=== PATIENT | female | born 1990 | race Caucasian/White ===

== ENCOUNTER 2016-10-07 20:19 | Emergency (ER) | payer BC ==
--- NOTE | 2016-10-07 20:35 | ED ---
Upper Extremity HPI - General Source: patient, family, RN notes reviewed Mode of arrival: ambulatory Limitations: no limitations - History of Present Illness MD Complaint: Injury to:: right, wrist, hand Onset/Timin -: hour(s) <Iban Dave - Last Filed: 10/07/16 23:05> <Criselda Cruz - Last Filed: 10/08/16 04:31> - General Chief Complaint: Extremity Injury, Upper Stated Complaint: Hand Injury Time Seen by Provider: 10/07/16 20:26 - History of Present Illness Initial Comments: This is a [id number] 25-year-old female who presents emergency department after injuring her right hand and wrist when she was punching things at home out of anger. Patient states that she was angry and Punching objects such as mirrors and aviles. Patient complaining of aching pain to her right hand which is exacerbated by movement. Patient denies any other injuries. Patient denies any paresthesias. Patient has no significant past medical history. Patient states she does take Zoloft on a daily basis. Patient has a job and frequently uses her right hand. 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 Apparently the patient's father voiced to the triage nurse that he would like the patient evaluated by mental health. I did speak to the patient about this. Patient states she does have anger issues. Patient has also had problems with alcohol abuse. Patient denies suicidality or homicidality. (Iban Dave) - Related Data Home Medications Medication Instructions Recorded Confirmed Sertraline [Zoloft] 50 mg PO DAILY 10/07/16 10/07/16 hydrOXYzine HCL [Atarax] 25 mg PO TID PRN 10/07/16 10/07/16 Allergies Allergy/AdvReac Type Severity Reaction Status Date / Time No Known Allergies Allergy Verified 10/07/16 21:19 Review of Systems ROS Other: All systems not noted in ROS Statement are negative. <Iban Dave - Last Filed: 10/07/16 23:05> ROS Other: All systems not noted in ROS Statement are negative. <Criselda Cruz - Last Filed: 10/08/16 04:31> ROS Statement: Those systems with pertinent positive or pertinent negative responses have been documented in the HPI. Past Medical History Past Medical History: No Reported History Past Surgical History: No Surgical Hx Reported Past Psychological History: Depression Smoking Status: Current every day smoker Past Alcohol Use History: Occasional Past Drug Use History: Marijuana <TenzinIban - Last Filed: 10/07/16 23:05> General Exam Limitations: no limitations General appearance: alert, in no apparent distress Head exam: Present: atraumatic, normocephalic, normal inspection Eye exam: Present: normal appearance, EOMI. Absent: scleral icterus, conjunctival injection ENT exam: Present: normal exam Neck exam: Present: normal inspection Respiratory exam: Present: normal lung sounds bilaterally. Absent: respiratory distress, wheezes, rales, rhonchi, stridor Cardiovascular Exam: Present: regular rate, normal rhythm, normal heart sounds. Absent: systolic murmur, diastolic murmur, rubs, gallop, clicks Right Upper Arm exam: Present: normal inspection. Absent: tenderness Elbow exam: Present: normal inspection, full ROM. Absent: tenderness Forearm Wrist exam: Present: normal inspection. Absent: tenderness Hand Wrist exam: Present: full ROM, tenderness (Patient has mild tenderness over the right fourth and fifth metacarpophalangeal joint areas. Minimal tenderness proximally. There is no snuffbox tenderness.). Absent: swelling, abrasion, laceration, ecchymosis, deformity, crepitus, dislocation, erythema, amputation, nail avulsion, subungual hematoma Neuro motor exam: Present: wrist extension intact, thumb opposition intact, thumb IP flexion intact, thumb adduction intact, fingers 2-5 abduction intact Vascular: Present: normal capillary refill, radial pulse (2+). Absent: vascular compromise, Pallo, pulse deficit radial art Back exam: Present: normal inspection Neurological exam: Present: alert, oriented X3, CN II-XII intact, normal gait. Absent: motor sensory deficit Psychiatric exam: Present: normal affect, normal mood, other (No suicidal or homicidal ideation). Absent: depressed, agitated, anxious, flat affect, manic, homicidal ideation, suicidal ideation Skin exam: Present: warm, dry, normal color <Iban Dave - Last Filed: 10/07/16 23:05> <Criselda Cruz - Last Filed: 10/08/16 04:31> - General Exam Comments Initial Comments: Well-developed, well-nourished 25-year-old female in no distress (Iban Dave) Course <Iban Dave - Last Filed: 10/07/16 23:05> <Criselda Cruz - Last Filed: 10/08/16 04:31> Vital Signs 10/07/16 10/08/16 20:21 03:22 Temperature 97.1 F L 98.3 F Pulse Rate 78 77 Respiratory 18 18 Rate Blood Pressure 129/67 118/69 O2 Sat by Pulse 97 99 Oximetry - Reevaluation(s) Reevaluation #1: 10/07/16 22:03 Patient unchanged 10/07/16 22:03 Patient resting calmly in the room. No distress (Iban Dave) Medical Decision Making - Radiology Data Radiology results: report reviewed, image reviewed <Iban Dave - Last Filed: 10/07/16 23:05> <Criselda Cruz - Last Filed: 10/08/16 04:31> - Medical Decision Making Patient was cleared medically for psychiatric evaluation Patient will be turned over to Criselda Cruz for further evaluation and disposition. Patient resting comfortably in the room at this time. (Iban Dave ) Patient was evaluated by emergency psych services. They states that patient is not suicidal and does not need to be admitted at this time. Patient will be discharged with outpatient information. Patient presents the treatment plan will comply. Return parameters were discussed. (Criselda Cruz) - Lab Data Lab Results 10/07/16 10/07/16 Range/Units 20:44 20:44 Urine HCG, Qual Not Detected (Not Detectd) Urine Opiates Screen Not Detected (NotDetected) Ur Oxycodone Screen Not Detected (NotDetected) Urine Methadone Screen Not Detected (NotDetected) Ur Propoxyphene Screen Not Detected (NotDetected) Ur Barbiturates Screen Not Detected (NotDetected) U Tricyclic Antidepress Not Detected (NotDetected) Ur Phencyclidine Scrn Not Detected (NotDetected) Ur Amphetamines Screen Not Detected (NotDetected) U Methamphetamines Scrn Not Detected (NotDetected) U Benzodiazepines Scrn Detected H (NotDetected) Urine Cocaine Screen Not Detected (NotDetected) U Marijuana (THC) Screen Detected H (NotDetected) - Radiology Data No evidence of acute pathology (Iban Dave) Disposition <Iban Dave - Last Filed: 10/07/16 23:05> Time of Disposition: 03:09 <Keira Cruzily - Last Filed: 10/08/16 04:31> Clinical Impression: Contusion of right hand, initial encounter, Alcohol intoxication, Alcohol abuse , Anger reaction Disposition: HOME SELF-CARE Condition: Good Instructions: Suicide Prevention for Adults (ED) Additional Instructions: Patient advised to follow-up with outpatient psychiatric services. Return to the emergency department if any alarming signs or symptoms occur including suicidal thoughts. Referrals: Aroldo Noel DO [Primary Care Provider] - 1-2 days
--- NOTE | 2016-10-07 20:49 | XR ---
EXAMINATION TYPE: XR wrist complete RT DATE OF EXAM: 10/07/2016 8:37 PM COMPARISON: NONE HISTORY: Pain and injury TECHNIQUE: 4 views FINDINGS: I see no fracture nor dislocation. Joint spaces are normal. Soft tissues appear normal. IMPRESSION: Normal right wrist.
--- NOTE | 2016-10-07 20:49 | XR ---
History pain. Comparison none. Technique 3 views. FINDINGS: I see no fracture nor dislocation. Metacarpals are intact. There are no erosions. Joint spaces are no rmal. CONCLUSION: Negative right hand exam.
[2016-10-07 21:05] VITALS: RESP 18
[2016-10-07] MEDS ORDERED: ACETAMINOPHEN TAB 500 MG TAB PO STA (22:18)
[2016-10-07] MEDS ORDERED: NICOTINE 14MG/24HR PATCH TRANSDERM STA (22:19)
[2016-10-08] MEDS ORDERED: IBUPROFEN 600 MG TAB PO STA (00:52)
[2016-10-08 03:43] VITALS: BP 118/69; PULSE 77; TEMP 98.3
== END 2016-10-08 03:42 | disposition home or self-care (01) ==
LOC: EC 20:19
DX: S60.211A Contusion of right wrist, initial encounter (principal); F10.129 Alcohol abuse with intoxication, unspecified; R45.4 Irritability and anger; F32.9 Major depressive disorder, single episode, unspecified; F17.200 Nicotine dependence, unspecified, uncomplicated; Z79.899 Other long term (current) drug therapy; W22.8XXA Striking against or struck by other objects, initial encounter
CPT/HCPCS: 82075; 81025; 80306; 73110; 73130; 99284; S4990

== ENCOUNTER 2017-01-31 21:27 | Emergency (ER) | payer BC, OTHER ==
[2017-01-31] MEDS ORDERED: SODIUM CHLORIDE 0.9% 1,000 ML IV ONE (21:35)
--- NOTE | 2017-01-31 21:45 | ED ---
Abdominal Pain HPI - General Chief Complaint: Abdominal Pain Stated Complaint: 15 wks preg. Cramping Time Seen by Provider: 01/31/17 21:34 Source: patient Mode of arrival: ambulatory Limitations: no limitations - History of Present Illness Complaint: abdominal pain Onset/Timin -: hour(s) Location: LLQ Radiation: none Migration to: no migration Severity: moderate Quality: cramping Consistency: constant Improves With: nothing Worsens With: nothing Associated Symptoms: denies other symptoms - Related Data LMP (females 10-50): 2 months Home Medications Medication Instructions Recorded Confirmed No Known Home Medications [No 01/31/17 01/31/17 Known Home Medications] Allergies Allergy/AdvReac Type Severity Reaction Status Date / Time No Known Allergies Allergy Verified 01/31/17 21:44 Review of Systems ROS Statement: Those systems with pertinent positive or pertinent negative responses have been documented in the HPI. ROS Other: All systems not noted in ROS Statement are negative. Constitutional: Denies: fever, chills, weakness Respiratory: Denies: cough, dyspnea Cardiovascular: Denies: chest pain, edema Gastrointestinal: Reports: abdominal pain, nausea. Denies: vomiting, diarrhea, constipation, melena, hematochezia Genitourinary: Denies: dysuria, hematuria, discharge Musculoskeletal: Denies: back pain Skin: Denies: rash Neurological: Denies: headache Past Medical History Past Medical History: No Reported History History of Any Multi-Drug Resistant Organisms: None Reported Past Surgical History: No Surgical Hx Reported Past Psychological History: No Psychological Hx Reported Smoking Status: Former smoker Past Alcohol Use History: None Reported Past Drug Use History: Marijuana General Exam Limitations: no limitations General appearance: alert, in no apparent distress Head exam: Present: atraumatic, normocephalic Eye exam: Present: normal appearance. Absent: scleral icterus, conjunctival injection ENT exam: Present: normal oropharynx, mucous membranes moist Respiratory exam: Present: normal lung sounds bilaterally. Absent: respiratory distress, wheezes, rales, rhonchi, stridor Cardiovascular Exam: Present: regular rate, normal rhythm, normal heart sounds. Absent: systolic murmur, diastolic murmur, rubs, gallop GI/Abdominal exam: Present: soft, normal bowel sounds. Absent: distended, tenderness, guarding, rebound, rigid, mass, pulsatile mass, hernia External exam: Present: normal external exam. Absent: erythema, swelling, lesions, lacerations, ecchymosis Speculum exam: Present: normal speculum exam. Absent: erythema, vaginal discharge, cervical discharge, vaginal bleeding By manual exam: Present: normal by manual exam, uterine enlargement ( Approximately 4-6 weeks size). Absent: cervical motion tenderness, adnexal tenderness, adnexal mass, uterine tenderness Back exam: Present: normal inspection. Absent: CVA tenderness (R), CVA tenderness (L) Neurological exam: Present: alert Skin exam: Present: warm, dry, intact, normal color. Absent: rash Course Vital Signs 01/31/17 02/01/17 21:31 00:00 Temperature 98.2 F Pulse Rate 90 90 Respiratory 20 18 Rate Blood Pressure 144/90 118/70 O2 Sat by Pulse 100 99 Oximetry Medical Decision Making - Lab Data Lab Results 01/31/17 01/31/17 01/31/17 Range/Units 22:08 22:08 22:08 HCG, Quant 22376.5 mIU/mL Urine Color Yellow Urine Appearance Cloudy H (Clear) Urine pH 5.5 (5.0-8.0) Ur Specific [place] 1.022 (1.001-1.035) Urine Protein Negative (Negative) Urine Glucose (UA) Negative (Negative) Urine Ketones Negative (Negative) Urine Blood Small H (Negative) Urine Nitrite Negative (Negative) Urine Bilirubin Negative (Negative) Urine Urobilinogen <2.0 (<2.0) mg/dL Ur Leukocyte Esterase Negative (Negative) Urine RBC 3 (0-5) /hpf Urine WBC 2 (0-5) /hpf Ur Squamous Epith Cells 14 H (0-4) /hpf Urine Bacteria Occasional H (None) /hpf Urine Mucus Rare H (None) /hpf Urine HCG, Qual (Not Detectd) Trichomonas Ag (Rapid) (Negative) Blood Type O Positive Blood Type Recheck No 01/31/17 01/31/17 Range/Units 22:08 22:33 HCG, Quant mIU/mL Urine Color Urine Appearance (Clear) Urine pH (5.0-8.0) Ur Specific [place] (1.001-1.035) Urine Protein (Negative) Urine Glucose (UA) (Negative) Urine Ketones (Negative) Urine Blood (Negative) Urine Nitrite (Negative) Urine Bilirubin (Negative) Urine Urobilinogen (<2.0) mg/dL Ur Leukocyte Esterase (Negative) Urine RBC (0-5) /hpf Urine WBC (0-5) /hpf Ur Squamous Epith Cells (0-4) /hpf Urine Bacteria (None) /hpf Urine Mucus (None) /hpf Urine HCG, Qual Detected (Not Detectd) Trichomonas Ag (Rapid) Negative (Negative) Blood Type Blood Type Recheck Disposition Clinical Impression: Abdominal pain Disposition: HOME SELF-CARE Condition: Good Instructions: Abdominal Pain in (ED) Referrals: Aroldo Noel DO [Primary Care Provider] - 1-2 days Andreas Gr MD [STAFF PHYSICIAN] - 1-2 days
[2017-01-31] MEDS ORDERED: ACETAMINOPHEN TAB 325 MG TAB PO STA (21:47)
[2017-01-31 22:21] LABS: Appearance,Urine Cloudy (Clear); Bacteria,Urine Occasional /hpf; Bilirubin,Urine Negative (Negative); Glucose,Urine (UA) Negative (Negative); Ketones,Urine Negative (Negative); Leukocyte Esterase,Urine Negative (Negative); Mucus,Urine Rare /hpf; Nitrite,Urine Negative (Negative); PH, Urine 5.5 (5.0-8.0); Particle Count 6197; Protein,Urine Negative (Negative); RBC,Urine 3 /hpf (0-5); Specific Gravity,Urine 1.022 (1.001-1.035); Squamous Epithelial Cell,Urine 14 /hpf (0-4); UA Billing (MACRO vs. MICRO) MICRO; Urobilinogen,Urine <2.0 mg/dL (<2.0); WBC,Urine 2 /hpf (0-5)
[2017-02-01 00:40] VITALS: RESP 18
--- NOTE | 2017-02-01 00:43 | US ---
EXAM: US First Trimester, Transabdominal US , Transvaginal CLINICAL HISTORY: 26-year-old female with pelvic pain. LMP of 10/21/2016. GA by LMP 14 weeks 4 days. Beta hCG of 53,717 TECHNIQUE: Real-time transabdominal and transvaginal obstetrical ultrasound of the maternal pelvis and a first trimester with image documentation. Transvaginal imaging was used for better evaluation of the fetus and adnexa. COMPARISON: None. FINDINGS: Gestation: [place]-rump length of 0.46 cm, which corresponds to an ultrasound age of 6 weeks 1 day. Mean sac diameter of 1.35 cm, which corresponds to an ultrasound age of 5 weeks 4 days. Yolk sac measures 0. 3 cm, which is normal. Heart rate of 155 bpm. Placenta/amniotic fluid: Cannot be adequately evaluated due to the early gestational age. Uterus/cervix: The uterus measures 9.6 x 4.7 x 5.5 cm. No myometrial mass. Ovaries: The right ovary measures 2.1 x 1.2 x 2.1 cm. The left ovary measures 1.3 x 1.4 x 1.2 cm. No mass. Free fluid: No significant free fluid. IMPRESSION: Single live intrauterine gestation with an average ultrasound age of 5 weeks 6 days, which does not correspond with the LMP. Serial trending beta hCG values along with short-term interval obstetrical ultrasound recommended for follow-up.
[2017-02-01 01:12] VITALS: BP 113/83; PULSE 73; TEMP 97
== END 2017-02-01 01:12 | disposition home or self-care (01) ==
LOC: EC 21:27
DX: O26.892 Other specified pregnancy related conditions, second trimester (principal); R10.32 Left lower quadrant pain; Z87.891 Personal history of nicotine dependence; Z3A.15 15 weeks gestation of pregnancy
CPT/HCPCS: 36415; 76801; 76817; 81001; 81025; 84702; 86900; 86901; 87070; 87205; 87491; 87591; 87808; 96360; 99284

== ENCOUNTER 2017-02-15 00:32 | Emergency (ER) | payer OTHER ==
[2017-02-15 01:37] LABS: Basophils # (A) 0.1 k/uL (0-0.2); Basophils % (A) 1 %; CH 30.6; CHCM 35.6; Eosinophils # (A) 0.1 k/uL (0-0.7); Eosinophils % (A) 1 %; HCT 34.9 % (34.0-46.0); HDW 2.55; HGB 12.6 gm/dL (11.4-16.0); Luc # (Auto) 0.22; Luc % (Auto) 2; Lymphocytes # (A) 2.2 k/uL (1.0-4.8); Lymphocytes % (A) 22 %; MCH 31.3 pg (25.0-35.0); MCHC 36.2 g/dL (31.0-37.0); MCV 86.4 fL (80.0-100.0); Mean Platelet Volume 7.3; Monocytes # (A) 0.6 k/uL (0-1.0); Monocytes % (A) 6 %; Neutrophils # (A) 6.6 k/uL (1.3-7.7); Neutrophils % (A) 68 %; RBC 4.04 m/uL (3.80-5.40); WBC 9.7 k/uL (3.8-10.6)
[2017-02-15 01:39] LABS: Anion Gap 10 mmol/L; Blood Urea Nitrogen 10 mg/dL (7-17); Calcium 9.7 mg/dL (8.4-10.2); Carbon Dioxide 22 mmol/L (22-30); Chloride 105 mmol/L (98-107); Glucose 88 mg/dL (74-99); Non-African American GFR(MDRD) >60 (>60 ml/min/1.73 sqM); Potassium 3.9 mmol/L (3.5-5.1); Sodium 137 mmol/L (137-145)
--- NOTE | 2017-02-15 01:44 | ED ---
General Adult HPI - General Chief complaint: Vaginal Bleeding Stated complaint: 8wks preg-Bleeding/Cramping Time Seen by Provider: 02/15/17 00:51 Source: patient, RN notes reviewed Mode of arrival: ambulatory Limitations: no limitations - History of Present Illness Initial comments: 26 show female presents emergency Department chief complaint vaginal bleeding . Patient is A0 approximate weeks . 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 Patient states that she has had some spotting last few days but states that she passed 1 clot today. Patient states she has some lower abdominal cramping. Patient denies any fever or chills. She states she does have nausea vomiting. Patient states that she has no dysuria no hematuria. She was recently treated for urinary tract infection. - Related Data Home Medications Medication Instructions Recorded Confirmed No Known Home Medications [No 01/31/17 01/31/17 Known Home Medications] Allergies Allergy/AdvReac Type Severity Reaction Status Date / Time No Known Allergies Allergy Verified 02/15/17 00:35 Review of Systems ROS Statement: Those systems with pertinent positive or pertinent negative responses have been documented in the HPI. ROS Other: All systems not noted in ROS Statement are negative. Past Medical History Past Medical History: No Reported History History of Any Multi-Drug Resistant Organisms: None Reported Past Surgical History: No Surgical Hx Reported Past Psychological History: No Psychological Hx Reported Smoking Status: Former smoker Past Alcohol Use History: None Reported Past Drug Use History: Marijuana General Exam Limitations: no limitations General appearance: alert, in no apparent distress Respiratory exam: Present: normal lung sounds bilaterally. Absent: respiratory distress, wheezes, rales, rhonchi, stridor Cardiovascular Exam: Present: regular rate, normal rhythm, normal heart sounds. Absent: systolic murmur, diastolic murmur, rubs, gallop, clicks GI/Abdominal exam: Present: soft, normal bowel sounds. Absent: distended, tenderness, guarding, rebound, rigid Neurological exam: Present: alert, oriented X3, CN II-XII intact Skin exam: Present: warm, dry, intact, normal color. Absent: rash Course Vital Signs 02/15/17 00:35 Temperature 98.4 F Pulse Rate 115 H Respiratory 18 Rate Blood Pressure 128/84 O2 Sat by Pulse 100 Oximetry Medical Decision Making - Medical Decision Making 26-year-old female presented for vaginal bleeding and . Patient appears to having a miscarriage. Patient's ultrasound does not show viable IUP at this time as there is no heartbeat and the borders are irregular. Patient's hCG level did go up though. Patient has a follow-up appointment with [facility]ER return parameters were discussed. - Lab Data Result diagrams: 02/15/17 01:16 02/15/17 01:16 Lab Results 02/15/17 02/15/17 02/15/17 Range/Units 01:16 01:16 01:16 WBC 9.7 (3.8-10.6) k/uL RBC 4.04 (3.80-5.40) m/uL Hgb 12.6 (11.4-16.0) gm/dL Hct 34.9 (34.0-46.0) % MCV 86.4 (80.0-100.0) fL MCH 31.3 (25.0-35.0) pg MCHC 36.2 (31.0-37.0) g/dL RDW 12.0 (11.5-15.5) % Plt Count 305 (150-450) k/uL Neutrophils % 68 % Lymphocytes % 22 % Monocytes % 6 % Eosinophils % 1 % Basophils % 1 % Neutrophils # 6.6 (1.3-7.7) k/uL Lymphocytes # 2.2 (1.0-4.8) k/uL Monocytes # 0.6 (0-1.0) k/uL Eosinophils # 0.1 (0-0.7) k/uL Basophils # 0.1 (0-0.2) k/uL Sodium 137 (137-145) mmol/L Potassium 3.9 (3.5-5.1) mmol/L Chloride 105 (98-107) mmol/L Carbon Dioxide 22 (22-30) mmol/L Anion Gap 10 mmol/L BUN 10 (7-17) mg/dL Creatinine 0.60 (0.52-1.04) mg/dL Est GFR (MDRD) Af Amer >60 (>60 ml/min/1.73 sqM) Est GFR (MDRD) Non-Af >60 (>60 ml/min/1.73 sqM) Glucose 88 (74-99) mg/dL Calcium 9.7 (8.4-10.2) mg/dL HCG, Quant 19369.5 mIU/mL Blood Type O Positive Blood Type Recheck No Disposition Clinical Impression: Miscarriage Disposition: HOME SELF-CARE Condition: Stable Instructions: Miscarriage (ED) Additional Instructions: Please return to the Emergency Department if symptoms worsen or any other concerns. Referrals: Aroldo Noel DO [Primary Care Provider] - 1-2 days Time of Disposition: 02:32
--- NOTE | 2017-02-15 02:26 | US ---
EXAM: US First Trimester, Transabdominal US , Transvaginal CLINICAL HISTORY: Reason: pain TECHNIQUE: Real-time transabdominal and transvaginal obstetrical ultrasound of the maternal pelvis and a first trimester with image documentation. Transvaginal imaging was used for better evaluation of the fetus and adnexa. COMPARISON: Pelvic ultrasound, 01/31/17 FINDINGS: Gestation: Intrauterine gestational sac with irregular margins. Measurements are not provided. Previously seen pole and yolk sac are no longer identified. Uterus/cervix: Uterus measures 8.9 x 5.4 x 5.5 cm. Ovaries: Ovaries not visualized. No adnexal mass or cyst. Free fluid: No free fluid. IMPRESSION: 1. Intrauterine gestational sac with irregular margins. Previously seen pole and yolk sac are no longer identified. Findings are suspicious for spontaneous . Recommend correlation with beta hCG trend and consider short interval follow-up ultrasound. 2. Ovaries not visualized. No adnexal mass or cyst.
[2017-02-15 02:39] LABS: Amorphous Sediment,Urine Few /hpf; Appearance,Urine Turbid (Clear); Bilirubin,Urine Negative (Negative); Glucose,Urine (UA) Negative (Negative); Ketones,Urine Negative (Negative); Leukocyte Esterase,Urine Negative (Negative); Mucus,Urine Rare /hpf; Nitrite,Urine Negative (Negative); Particle Count 37488; Protein,Urine Negative (Negative); Specific Gravity,Urine 1.013 (1.001-1.035); Squamous Epithelial Cell,Urine 3 /hpf (0-4); UA Billing (MACRO vs. MICRO) MICRO; Urobilinogen,Urine <2.0 mg/dL (<2.0)
[2017-02-15 02:44] VITALS: BP 108/85; PULSE 57; RESP 16; TEMP 98.3
== END 2017-02-15 02:43 | disposition home or self-care (01) ==
LOC: EC 00:32
DX: O03.9 Complete or unspecified spontaneous abortion without complication (principal); O21.9 Vomiting of pregnancy, unspecified; Z87.891 Personal history of nicotine dependence
CPT/HCPCS: 36415; 76801; 76817; 80048; 81001; 84702; 85025; 86900; 86901; 99284

== ENCOUNTER 2018-05-11 03:50 | Inpatient (IN) | payer OTHER ==
[2018-05-11] MEDS ORDERED: METHYLERGONOVINE 0.2 MG/ML 1 ML AMP IM PRN (07:13)
[2018-05-11] MEDS ORDERED: CARBOPROST TROMETHAMINE 250 MCG/ML 1 ML AMP IM PRN (07:13)
[2018-05-11] MEDS ORDERED: LIDOCAINE 0.5% (PF) 5 MG/ML (50 ML SDV) SQ PRN (07:13)
[2018-05-11] MEDS ORDERED: TERBUTALINE 1 MG/ML VIAL SQ PRN (07:13)
[2018-05-11] MEDS ORDERED: OXYTOCIN 10 UNIT/ML 1 ML VIAL IM PRN (07:13)
[2018-05-11] MEDS ORDERED: OXYTOCIN 20 UNITS/1000 ML NS 1,000 ML IV SCH ×2 (07:15→19:15)
[2018-05-11 07:34] VITALS: BMI 30.5
[2018-05-11] MEDS: LACTATED RINGERS 1,000 ML IV SCH ×3 (07:48→12:04)
[2018-05-11 07:52] LABS: Basophils % (A) 0 %; Eosinophils # (A) 0.1 k/uL (0-0.7); Eosinophils % (A) 0 %; HCT 35.7 % (34.0-46.0); HGB 12.1 gm/dL (11.4-16.0); Lymphocytes # (A) 1.8 k/uL (1.0-4.8); Lymphocytes % (A) 7 %; MCH 29.2 pg (25.0-35.0); MCHC 33.8 g/dL (31.0-37.0); MCV 86.5 fL (80.0-100.0); Mean Platelet Volume 7.6; Monocytes # (A) 0.7 k/uL (0-1.0); Monocytes % (A) 3 %; Neutrophils # (A) 21.7 k/uL (1.3-7.7); Neutrophils % (A) 89 %; Platelet Count 309 k/uL (150-450); RBC 4.13 m/uL (3.80-5.40); RDW 14.1 % (11.5-15.5); WBC 24.4 k/uL (3.8-10.6)
[2018-05-11] MEDS ORDERED: ROPIVACAINE 5MG/ML 20ML VIAL ONE (08:27)
[2018-05-11] MEDS ORDERED: fentaNYL (PF) 50 MCG/ML 5 ML AMP ONE (08:27)
[2018-05-11] MEDS ORDERED: SODIUM CHLORIDE 0.9% 100 ML BAG ONE (08:27)
--- NOTE | 2018-05-11 10:26 | P.HPOB ---
History of Present Illness H&P Date: 05/11/18 Chief Complaint: 39-4/7 weeks, labor The patient is a 27-year-old 2 para 0010 admitted at 39-4/7 weeks as established by a 10 week ultrasound. She is admitted in early labor with all signs reassuring. She was seen through triage and made cervical change. On admission, all signs are reassuring. Her has been uncomplicated though she did have some emotional lability in the midtrimester and was started on Zoloft which is significantly relieved the symptoms. Group B strep status is negative. Obstetrical history: 2 para 0010 with the 1 early miscarriage not requiring D&C. Current statistics are listed in history of present illness. EDC of 05/14/2018 was established by a 10 week ultrasound. Laboratory workup done traits of blood type of O+ with a negative antibody screen. Rubella status is immune. Remainder of the laboratory workup was within normal limits. One hour Glucola was normal and group B strep status is negative. Gynecologic history: Unremarkable with no history of any infections to include STDs. Review of Systems Review of systems is confined to history of present illness. Past Medical History Past Medical History: No Reported History History of Any Multi-Drug Resistant Organisms: None Reported Past Surgical History: No Surgical Hx Reported Past Anesthesia/Blood Transfusion Reactions: No Reported Reaction Past Psychological History: Depression Smoking Status: Former smoker Past Alcohol Use History: None Reported Past Drug Use History: Marijuana Additional Drug Use History / Comment(s): daily thc use - Past Family History Mother Family Medical History: No Reported History Medications and Allergies Home Medications Medication Instructions Recorded Confirmed Type Pnv,Calcium 72/Iron/Folic Acid 1 tab PO DAILY 05/11/18 05/11/18 History [ Plus Tablet] Sertraline [Zoloft] 50 mg PO DAILY 05/11/18 05/11/18 History Allergies Allergy/AdvReac Type Severity Reaction Status Date / Time No Known Allergies Allergy Verified 05/11/18 04:04 Exam Vital Signs Temp Pulse Resp BP 05/11/18 06:00 97.3 F L 95 16 124/86 Intake and Output 05/10/18 05/11/18 05/11/18 22:59 06:59 14:59 Other: Weight 80.739 kg 80.739 kg In general, this is a well-developed, well-nourished white female in no acute distress. Her heart has a regular rhythm and rate without murmur. Her lungs are clear to auscultation bilaterally in all christina. Her abdomen is gravid, nondistended, has normal active bowel sounds, is soft, nontender, and without any palpable masses aside from uterine fundus. Her extremities are without any cyanosis, clubbing, or significant edema and are nontender to palpation bilaterally. Digital cervical examination on straights her cervix to be 4-5 cm dilated, approximately 80% effaced, with the vertex in presentation at -2 station. Artificial rupture of membranes is carried out demonstrating light to moderately meconium-stained fluid. Results Result Diagrams: 05/11/18 07:38 Abnormal Lab Results - Last 24 Hours (Table) 05/11/18 Range/Units 07:38 WBC 24.4 H (3.8-10.6) k/uL Neutrophils # 21.7 H (1.3-7.7) k/uL Assessment and Plan (1) Active labor at term Current Visit: Yes Status: Acute Code(s): GSW2387 - SNOMED Code(s): 26323248 Plan: The patient is admitted for active management of labor. An epidural catheter has been placed for analgesia. She has undergone artificial rupture of membranes. As result meconium present, the nurse delivery helper will be in attendance at the delivery. Otherwise, the patient will continue to have close maternal and surveillance and expectant management will be practiced. Should she made no significant progress over the next the of one hour, Pitocin augmentation will be added.
[2018-05-11] MEDS ORDERED: ROPIVACAINE 100 MG, fentaNYL (PF) 200 MCG in SODIUM CHLORIDE 0.9% 76 ML EPIDURAL ONE (11:22)
[2018-05-11] MEDS ORDERED: WITCH HAZEL 1 EACH MED..PAD TOPICAL PRN (19:05)
[2018-05-11] MEDS ORDERED: diphenhydrAMINE 50 MG/ML 1 ML VIAL IVP PRN ×2 (19:05)
[2018-05-11] MEDS ORDERED: LANOLIN CREAM 5 GM TUBE TOPICAL PRN (19:05)
[2018-05-11] MEDS ORDERED: diphenhydrAMINE 25 MG CAP PO PRN (19:05)
[2018-05-11] MEDS ORDERED: ZOLPIDEM 5 MG TAB PO PRN (19:05)
[2018-05-11] MEDS ORDERED: diphenhydrAMINE 50 MG CAP PO PRN (19:05)
[2018-05-11] MEDS ORDERED: BENZOCAINE/MENTHOL SPRAY 1 GM/SPRAY AEROSOL TOPICAL PRN (19:05)
[2018-05-11] MEDS ORDERED: SIMETHICONE 80 MG CHEWABLE PO PRN (19:05)
[2018-05-11] MEDS ORDERED: HYDROCORTISONE 2.5% RECTAL CREAM 30 GM TUBE RECTAL PRN (19:05)
--- NOTE | 2018-05-11 19:08 | P.PROBDLV ---
Vaginal Delivery Note - . Vaginal Delivery Note: This is a very pleasant 27-year-old 2 para 0010 at 39-4/7 weeks that presented to labor and delivery with complaints of contractions. Patient was admitted to labor and delivery amniotomy was performed and thin meconium- stained fluid was noted. Patient progressed through labor eventually requesting an epidural which was placed by anesthesia without difficulty. Patient was started on Pitocin augmentation of labor at some point during labor in addition. Patient progressed to complete, with excellent maternal effort she had a normal spontaneous vaginal delivery of a viable male at 1846, weight of 6 lbs. 10 oz. with Apgars of 8 and 9 at one and 5 minutes respectively. was noted to have a spontaneous cry. After a 2 minute delay the umbilical cord was doubly clamped and cut and the placenta was delivered spontaneously intact with a three-vessel cord being noted. On inspection the patient's vaginal vault bilateral labial lacerations were noted which were repaired in the usual fashion with 4-0 chromic. Hemostasis was appreciated afterwards uterus was noted to be firm and below the umbilicus at this time. Estimated blood loss 300 mL Patient and tolerated delivery well and are resting comfortably.
[2018-05-11] MEDS: IBUPROFEN 600 MG TAB PO PRN (21:14)
[2018-05-11] MEDS: SENNOSIDES-DOCUSATE SODIUM 1 EACH TAB PO SCH (21:14)
[2018-05-12] MEDS: IBUPROFEN 600 MG TAB PO PRN ×3 (03:40→16:56)
[2018-05-12] MEDS: ACETAMINOPHEN TAB 325 MG TAB PO PRN (08:06)
[2018-05-12] MEDS: SENNOSIDES-DOCUSATE SODIUM 1 EACH TAB PO SCH ×2 (08:06→19:36)
--- NOTE | 2018-05-12 10:15 | P.PNOBGVD ---
Subjective - Subjective Principal diagnosis: PPD 1 Interval history: Patient is doing relatively well . On this day number when she is ambulating and voiding without difficulty. She states her pain is relatively well controlled. She is breast-feeding without difficulty. She is tolerating regular diet without nausea or vomiting. Patient reports: Reports voiding normally, Reports pain well controlled, Reports ambulating normally [place]: doing well, nursing well Objective - Latest Vital Signs Latest vital signs: Vital Signs Temp Pulse Resp BP Pulse Ox 05/12/18 08:00 96.7 F L 84 17 120/72 97 05/12/18 04:00 97.8 F 77 16 126/76 05/12/18 00:00 98.6 F 76 16 114/68 05/11/18 21:01 97.1 F L 96 16 117/77 05/11/18 20:31 106 H 16 117/67 05/11/18 20:01 106 H 14 127/63 05/11/18 19:46 98.1 F 98 16 125/65 05/11/18 19:31 94 16 120/76 05/11/18 19:16 98.2 F 102 H 16 126/78 05/11/18 19:01 98.0 F 121 H 16 132/68 Intake and Output 05/11/18 05/12/18 05/12/18 22:59 06:59 14:59 Intake Total 400 Balance 400 Intake: Oral 400 Other: # Voids 1 2 1 - Exam Extremities: Present: normal Abdomen: Present: normal appearance, soft Uterus: Present: normal, firm Assessment and Plan (1) Status post vaginal delivery Current Visit: Yes Status: Acute Code(s): GGD5963 - SNOMED Code(s): 128973411 (2) Active labor at term Current Visit: Yes Status: Acute Code(s): BMB3478 - SNOMED Code(s): 93978942 Plan: We'll continue routine care and anticipate discharge home tomorrow morning.
[2018-05-12] MEDS: HYDROcodone/APAP 5-325MG 1 EACH TAB PO PRN ×3 (11:17→23:15)
[2018-05-12 17:45] VITALS: RESP 16
[2018-05-13] MEDS: IBUPROFEN 600 MG TAB PO PRN (04:11)
[2018-05-13] MEDS: SENNOSIDES-DOCUSATE SODIUM 1 EACH TAB PO SCH (08:19)
[2018-05-13] MEDS: ACETAMINOPHEN TAB 325 MG TAB PO PRN (08:19)
--- NOTE | 2018-05-13 08:23 | P.DS ---
Providers Date of admission: 05/11/18 07:14 Expected date of discharge: 05/13/18 Attending physician: Andreas Gr Primary care physician: Andreas Gr - Discharge Diagnosis(es) (1) Status post vaginal delivery Current Visit: Yes Status: Acute (2) Active labor at term Current Visit: Yes Status: Acute Hospital Course: This is a pleasant 27-year-old 2 para 0010 at 39-4/7 weeks that presented to labor and delivery in active labor on 05/11. Patient progressed through labor eventually becoming complete and had a normal spontaneous vaginal delivery of a viable male infant at 1846, weight of 6 lbs. 10 oz. with Apgars of 8 and 9 at one and 5 minutes or sexually. Patient did sustain bilateral labial lacerations which were repaired in the usual fashion with chromic. Patient has done well . On this day #2 she is noting some depression symptoms but states she has not taken her Zoloft since . She is urged to restart this medication in the period especially. She is ambulating and voiding without difficulty. She is complaining of some "tailbone" pain since the delivery. She is breast-feeding without difficulty. Patient Condition at Discharge: Good Plan - Discharge Summary New Discharge Prescriptions: No Action Sertraline [Zoloft] 50 mg PO DAILY Pnv,Calcium 72/Iron/Folic Acid [ Plus Tablet] 1 tab PO DAILY Discharge Medication List Pnv,Calcium 72/Iron/Folic Acid [ Plus Tablet] 1 tab PO DAILY 05/11/18 [ History] Sertraline [Zoloft] 50 mg PO DAILY 05/11/18 [History] Follow up Appointment(s)/Referral(s): Andreas Gr MD [Primary Care Provider] - 6 Weeks Patient Instructions/Handouts: Vaginal Delivery (DC), Vaginal Delivery (GEN) Discharge Disposition: HOME SELF-CARE
[2018-05-13 08:52] VITALS: BP 130/88; PULSE 91; TEMP 97.8
[2018-05-13] MEDS ORDERED: PRENATAL VIT-IRON-FOLIC ACID 1 EACH CAP PO SCH (09:00)
[2018-05-13] MEDS ORDERED: SERTRALINE 50 MG TAB PO SCH (09:00)
== END 2018-05-13 11:00 | disposition home or self-care (01) | DRG 807 ==
LOC: FBPOP 03:50 → 4FBP 07:14
PROVIDERS: ADMIT Obstetrics & Gynecology; ATTEND Obstetrics & Gynecology
PROC: 10E0XZZ Delivery of Products of Conception, External Approach (ICD-10-PCS; principal; 2018-05-11)
PROC: 0HQ9XZZ Repair Perineum Skin, External Approach (ICD-10-PCS; 2018-05-11)
PROC: 00HU33Z Insertion of Infusion Device into Spinal Canal, Percutaneous Approach (ICD-10-PCS; 2018-05-11)
PROC: 3E0R3BZ Introduction of Anesthetic Agent into Spinal Canal, Percutaneous Approach (ICD-10-PCS; 2018-05-11)
DX: O77.0 Labor and delivery complicated by meconium in amniotic fluid (principal); Z37.0 Single live birth; O99.344 Other mental disorders complicating childbirth; O70.0 First degree perineal laceration during delivery; F32.9 Major depressive disorder, single episode, unspecified; O99.62 Diseases of the digestive system complicating childbirth; K21.9 Gastro-esophageal reflux disease without esophagitis; Z79.899 Other long term (current) drug therapy; Z87.891 Personal history of nicotine dependence; Z3A.39 39 weeks gestation of pregnancy
CPT/HCPCS: 59025; 85025; 86850; 86900; 86901; 99213

== ENCOUNTER 2020-08-18 08:28 | Inpatient (IN) | payer OTHER ==
[2020-08-18 09:09] LABS: Glucose,Whole Blood 106 mg/dL (75-99)
[2020-08-18] MEDS ORDERED: LIDOCAINE 0.5% (PF) 5 MG/ML (50 ML SDV) SQ PRN (09:14)
[2020-08-18] MEDS ORDERED: TERBUTALINE 1 MG/ML VIAL SQ PRN (09:14)
[2020-08-18] MEDS ORDERED: CARBOPROST TROMETHAMINE 250 MCG/ML 1 ML AMP IM PRN (09:14)
[2020-08-18] MEDS ORDERED: OXYTOCIN 10 UNIT/ML 1 ML VIAL IM PRN (09:14)
[2020-08-18] MEDS ORDERED: METHYLERGONOVINE 0.2 MG/ML 1 ML AMP IM PRN (09:14)
[2020-08-18] MEDS ORDERED: OXYTOCIN 30 UNITS/500 ML NS 30 UNIT in SALINE 1 500ML.BAG IV SCH ×2 (09:15→14:45)
[2020-08-18 09:40] LABS: Basophils # (A) 0.2 k/uL (0-0.2); Basophils % (A) 1 %; Eosinophils # (A) 0.1 k/uL (0-0.7); Eosinophils % (A) 0 %; HCT 38.9 % (34.0-46.0); HGB 12.4 gm/dL (11.4-16.0); Hypochromasia Moderate; Lymphocytes # (A) 1.8 k/uL (1.0-4.8); Lymphocytes % (A) 11 %; MCHC 31.8 g/dL (31.0-37.0); MCV 91.2 fL (80.0-100.0); Mean Platelet Volume 8.8; Monocytes # (A) 0.7 k/uL (0-1.0); Monocytes % (A) 4 %; Neutrophils # (A) 13.3 k/uL (1.3-7.7); Neutrophils % (A) 82 %; Platelet Count 173 k/uL (150-450); RBC 4.27 m/uL (3.80-5.40); RDW 14.8 % (11.5-15.5); WBC 16.2 k/uL (3.8-10.6)
[2020-08-18] MEDS: LACTATED RINGERS 1,000 ML IV SCH (09:50)
[2020-08-18] MEDS ORDERED: ROPIVACAINE 100 MG, fentaNYL (PF) 200 MCG in SODIUM CHLORIDE 0.9% 76 ML EPIDURAL ONE (10:16)
[2020-08-18] MEDS ORDERED: BUTORPHANOL 1 MG/ML 1 ML VIAL IV PRN (10:44)
--- NOTE | 2020-08-18 10:44 | P.HPOB ---
History of Present Illness H&P Date: 08/18/20 Chief Complaint: IUP @ 38 2/7 weeks, labor This is a 29yo at 38 3/7 weeks that presents to labor and delivery with c/o ctx. She states she had been sami irregularly over the last 2 days they became regular around 4 AM this morning. She denies vaginal bleeding or loss of fluid. She notes good movement Patient has been receiving routine care which has been complicated by diagnosis of gestational diabetes that was well controlled with diet until 2 weeks ago when she was started on glyburide 2.5 mg. Patient had an ultrasound done on 08/04, she was currently 36 weeks . Ultrasound revealing estimated weight of 6 lbs. 13 oz., 72nd percentile, normal amniotic fluid index of 15. On bloodwork patient has a blood type of O+, rubella status immune, RPR nonreactive, B surface antigen negative, HIV negative. As stated above known diagnosis of gestational diabetes, group beta strep culture negative on 08/04. Review of Systems Constitutional: Denies chills, Denies fatigue, Denies fever Ears, nose, mouth and throat: Denies headache Cardiovascular: Reports leg edema Respiratory: Denies dyspnea Gastrointestinal: Denies constipation, Denies diarrhea, Denies nausea, Denies vomiting Genitourinary: Reports Past Medical History Past Medical History: No Reported History Additional Past Medical History / Comment(s): Gestational diabetes History of Any Multi-Drug Resistant Organisms: None Reported Past Surgical History: No Surgical Hx Reported Additional Past Surgical History / Comment(s): [place] teeth Past Anesthesia/Blood Transfusion Reactions: No Reported Reaction Smoking Status: Former smoker - Past Family History Mother Family Medical History: No Reported History Medications and Allergies Home Medications Medication Instructions Recorded Confirmed Type Pnv,Calcium 72/Iron/Folic Acid 1 tab PO DAILY 05/11/18 08/18/20 History [ Plus Tablet] Sertraline [Zoloft] 50 mg PO DAILY 05/11/18 08/18/20 History Allergies Allergy/AdvReac Type Severity Reaction Status Date / Time No Known Allergies Allergy Verified 08/18/20 08:32 Exam Osteopathic Statement: *. No significant issues noted on an osteopathic structural exam other than those noted in the History and Physical/Consult. 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 Breathing is noted to be nonlabored, heart has a regular rate and rhythm, abdomen is gravid and appropriate for gestational age, on cervical exam she is 4/90/-2 station, amniotomy is performed thin meconium is appreciated. heart tones are noted to be category 1 and she is sami every 4 minutes. Results Result Diagrams: 08/18/20 09:05 Abnormal Lab Results - Last 24 Hours (Table) 08/18/20 08/18/20 Range/Units 09:05 09:06 WBC 16.2 H (3.8-10.6) k/uL Neutrophils # 13.3 H (1.3-7.7) k/uL POC Glucose (mg/dL) 106 H (75-99) mg/dL Assessment and Plan (1) GDM, class A2 Current Visit: Yes Status: Acute Code(s): O24.419 - GESTATIONAL DIABETES MELLITUS IN , UNSP CONTROL SNOMED Code(s): 06966243 (2) Active labor at term Current Visit: No Status: Acute Code(s): DKI0291 - SNOMED Code(s): 63886659 Plan: This pleasant 29-year-old 011 at 38 3/7 weeks of gestation presents in active labor. Patient quickly requested epidural upon admission. Amniotomy was performed and thin meconium is appreciated. Anticipate spontaneous vaginal delivery later today.
[2020-08-18 12:08] LABS: Glucose,Whole Blood 99 mg/dL (75-99)
--- NOTE | 2020-08-18 13:33 | P.PROBDLV ---
Vaginal Delivery Note - . Vaginal Delivery Note: The patient is a 29-year-old 3 para 1011 admitted at 38-2/7 weeks by good dating parameters. She is admitted in active labor with all signs reassuring, category 1 heart rate tracing. Her has been, it only by gestational diabetes which has become slightly less well controlled in the last 2-3 weeks. She was started on glyburide 2.5 mg daily to combat this as it was too late for consultation with endocrinology or maternal medicine. Her blood sugars began to improve with the glyburide but still remained mildly elevated. testing for the entire has been reassuring and group B strep status is negative. On labor and delivery, she underwent artificial rupture of membranes demonstrating mild to moderate meconium-stained fluid. She had an epidural catheter placed for analgesia. She made fairly rapid progress to the active phase of labor to complete and then pushed to a normal spontaneous vaginal delivery of a viable 5 lbs. 14 oz. baby girl with Apgars of 9 at 1 minute and 9 at 5 minutes delivered in the direct occiput anterior position. The placenta was delivered spontaneously, intact, and grossly normal although somewhat meconium-stained with a grossly normal, centrally inserted three-vessel cord noted to have a true knot in it. There were no lacerations of the perineum, vagina, or cervix. A Maria T blood loss for the case was approximate 100 mL. There were no complications. All sponge, instrument, needle counts were correct. The machine candle molder was at bedside should resuscitation be necessary for meconium but was not. Both mother and are resting comfortably in recovery.
[2020-08-18] MEDS ORDERED: LANOLIN CREAM 5 GM TUBE TOPICAL PRN (14:34)
[2020-08-18] MEDS ORDERED: SIMETHICONE 80 MG CHEWABLE PO PRN (14:34)
[2020-08-18] MEDS ORDERED: ZOLPIDEM 5 MG TAB PO PRN (14:34)
[2020-08-18] MEDS ORDERED: HYDROCORTISONE 2.5% RECTAL CREAM 30 GM TUBE RECTAL PRN (14:34)
[2020-08-18] MEDS ORDERED: diphenhydrAMINE 25 MG CAP PO PRN (14:34)
[2020-08-18] MEDS ORDERED: BENZOCAINE/MENTHOL SPRAY 1 GM/SPRAY AEROSOL TOPICAL PRN (14:34)
[2020-08-18] MEDS ORDERED: diphenhydrAMINE 50 MG CAP PO PRN (14:34)
[2020-08-18] MEDS ORDERED: diphenhydrAMINE 50 MG/ML 1 ML VIAL IVP PRN ×2 (14:34)
[2020-08-18] MEDS: ACETAMINOPHEN TAB 325 MG TAB PO PRN ×2 (15:45→23:15)
[2020-08-18] MEDS: IBUPROFEN 600 MG TAB PO SCH ×2 (15:58→20:01)
[2020-08-18] MEDS: SERTRALINE 100 MG TAB PO SCH (17:25)
[2020-08-18] MEDS: SENNOSIDES-DOCUSATE SODIUM 1 EACH TAB PO SCH (20:00)
[2020-08-19 04:32] VITALS: TEMP 97.6
[2020-08-19] MEDS: IBUPROFEN 600 MG TAB PO SCH ×3 (04:33→14:11)
[2020-08-19] MEDS: ACETAMINOPHEN TAB 325 MG TAB PO PRN (07:45)
[2020-08-19] MEDS: SENNOSIDES-DOCUSATE SODIUM 1 EACH TAB PO SCH (07:45)
[2020-08-19] MEDS: LACTATED RINGERS 1,000 ML IV SCH ×2 (07:55→09:36)
[2020-08-19 08:08] LABS: Basophils # (A) 0.1 k/uL (0-0.2); Basophils % (A) 0 %; Eosinophils # (A) 0.1 k/uL (0-0.7); Eosinophils % (A) 0 %; HCT 32.5 % (34.0-46.0); Lymphocytes # (A) 2.4 k/uL (1.0-4.8); Lymphocytes % (A) 17 %; MCH 28.9 pg (25.0-35.0); MCHC 33.7 g/dL (31.0-37.0); Mean Platelet Volume 8.2; Monocytes # (A) 0.6 k/uL (0-1.0); Monocytes % (A) 5 %; Neutrophils # (A) 10.8 k/uL (1.3-7.7); Neutrophils % (A) 77 %; Platelet Count 238 k/uL (150-450); RBC 3.79 m/uL (3.80-5.40); RDW 14.7 % (11.5-15.5)
[2020-08-19 08:15] LABS: MCV 85.8 fL (80.0-100.0)
--- NOTE | 2020-08-19 08:56 | P.DS ---
Providers Date of admission: 08/18/20 08:45 Expected date of discharge: 08/19/20 Attending physician: Andreas Gr Primary care physician: Stated None - Discharge Diagnosis(es) (1) Status post vaginal delivery Current Visit: Yes Status: Acute Hospital Course: The patient is a 29-year-old 3 para 1011 admitted at 38-2/7 weeks as established by good dating parameters. She is admitted in early active labor with all signs reassuring. Her has been Dated by gestational diabetes which began to have less control at approximately 36 weeks. As she could not be seen in time through maternal medicine or endocrine, she was ultimately started on glyburide which manage her blood sugars better. On labor and delivery, all signs reassuring and group B strep status is negative. She had an epidural catheter placed for analgesia and then underwent artificial rupture of membranes since reading light meconium-stained fluid. She progressed very quickly through the active phase of labor to complete and then pushed very quickly to a normal spontaneous vaginal delivery of a viable 5 lbs. 14 oz. baby girl with Apgars of 9 at 1 minute and 9 at 5 it's. Her course was unremarkable with vital signs or any stable and her temperature was afebrile throughout. She was deemed stable for discharge on day #1 was discharged home to follow-up in the office in 6 weeks' time routinely. Discharge instructions included calling for any significantly increased bleeding or foul-smelling lochia, significantly increased fever or abdominal pain, perineal complaints, breast complaints, or anything else that concerned her. She is additionally instructed to have nothing in the vagina for at least 6 weeks time to include intercourse. She understood her instructions and agrees to follow up as noted above. Discharge medications included continued vitamins as she is opted to breast-feed in the short-term. She additionally was to use [id number] analgesic pain medications as needed. Maternal blood type is O+ and rubella status is immune. Procedures: #1. Epidural analgesia #2. Artificial rupture of membranes #3. Normal spontaneous vaginal delivery Patient Condition at Discharge: Stable Plan - Discharge Summary New Discharge Prescriptions: No Action Sertraline [Zoloft] 50 mg PO DAILY Pnv,Calcium 72/Iron/Folic Acid [ Plus Tablet] 1 tab PO DAILY Discharge Medication List Pnv,Calcium 72/Iron/Folic Acid [ Plus Tablet] 1 tab PO DAILY 05/11/18 [History] Sertraline [Zoloft] 50 mg PO DAILY 05/11/18 [History] Follow up Appointment(s)/Referral(s): Andreas Gr MD [STAFF PHYSICIAN] - 6 Weeks Discharge Disposition: HOME SELF-CARE
[2020-08-19 09:10] VITALS: BP 114/72; PULSE 73; RESP 18
[2020-08-19] MEDS: SERTRALINE 100 MG TAB PO SCH (10:05)
== END 2020-08-19 14:30 | disposition home or self-care (01) | DRG 807 ==
LOC: FBPOP 08:28 → 4FBP 08:45
PROVIDERS: ADMIT Obstetrics & Gynecology; ATTEND Obstetrics & Gynecology
PROC: 00HU33Z Insertion of Infusion Device into Spinal Canal, Percutaneous Approach (ICD-10-PCS; principal; 2020-08-18)
PROC: 10E0XZZ Delivery of Products of Conception, External Approach (ICD-10-PCS; principal; 2020-08-18)
PROC: 3E0R3BZ Introduction of Anesthetic Agent into Spinal Canal, Percutaneous Approach (ICD-10-PCS; principal; 2020-08-18)
DX: O24.425 Gestational diabetes mellitus in childbirth, controlled by oral hypoglycemic drugs (principal); Z37.0 Single live birth; O77.0 Labor and delivery complicated by meconium in amniotic fluid; Z79.899 Other long term (current) drug therapy; O69.2XX0 Labor and delivery complicated by other cord entanglement, with compression, not applicable or unspecified; Z3A.38 38 weeks gestation of pregnancy; Z87.891 Personal history of nicotine dependence; Z98.818 Other dental procedure status
CPT/HCPCS: 85025; 86850; 86900; 86901; 99213

== ENCOUNTER 2021-11-03 07:55 | Observation (INO) | payer OTHER ==
[2021-11-03] MEDS ORDERED: SODIUM CHLORIDE 0.9% 1,000 ML IV STA (08:13)
[2021-11-03] MEDS ORDERED: HYDROmorphone 0.5 MG/0.5 ML SYRINGE IVP STA (08:13)
--- NOTE | 2021-11-03 08:19 | ED ---
General Adult HPI - General Chief complaint: Chest Pain Stated complaint: chest pain Time Seen by Provider: 11/03/21 08:00 Source: patient, RN notes reviewed, old records reviewed Mode of arrival: ambulatory Limitations: no limitations - History of Present Illness Initial comments: -year-old female presenting for evaluation of right lower chest pain and right upper abdominal pain. Symptoms have been present for the past 2 days. They have been associated with nausea and vomiting. Patient denies left-sided chest pain. Note difficulty breathing. No fever. She denies current . - Related Data Home Medications Medication Instructions Recorded Confirmed Pnv,Calcium 72/Iron/Folic Acid 1 tab PO DAILY 05/11/18 08/18/20 [ Plus Tablet] Sertraline [Zoloft] 50 mg PO DAILY 05/11/18 08/18/20 Allergies Allergy/AdvReac Type Severity Reaction Status Date / Time No Known Allergies Allergy Verified 11/03/21 07:58 Review of Systems ROS Statement: Those systems with pertinent positive or pertinent negative responses have been documented in the HPI. ROS Other: All systems not noted in ROS Statement are negative. Past Medical History Past Medical History: No Reported History Additional Past Medical History / Comment(s): Gestational diabetes History of Any Multi-Drug Resistant Organisms: None Reported Past Surgical History: No Surgical Hx Reported Additional Past Surgical History / Comment(s): [place] teeth Past Anesthesia/Blood Transfusion Reactions: No Reported Reaction Past Psychological History: Depression Smoking Status: Former smoker Past Alcohol Use History: None Reported Past Drug Use History: None Reported - Past Family History Mother Family Medical History: No Reported History General Exam Limitations: no limitations General appearance: alert, in no apparent distress Head exam: Present: atraumatic, normocephalic Eye exam: Present: normal appearance, PERRL ENT exam: Present: normal exam Neck exam: Present: normal inspection. Absent: tenderness, meningismus Respiratory exam: Present: normal lung sounds bilaterally. Absent: respiratory distress, wheezes Cardiovascular Exam: Present: regular rate, normal rhythm GI/Abdominal exam: Present: soft, tenderness (Right Upper quadrant). Absent: distended Extremities exam: Present: normal inspection, normal capillary refill, other ( rcast right lower extremity for ankle fracture) Back exam: Absent: CVA tenderness (R), CVA tenderness (L) Neurological exam: Present: alert, oriented X3, CN II-XII intact. Absent: motor sensory deficit Psychiatric exam: Present: normal affect, normal mood Skin exam: Present: warm, dry, intact. Absent: cyanosis, diaphoretic Course Vital Signs 11/03/21 11/03/21 07:56 09:29 Temperature 98.3 F Pulse Rate 103 H 87 Respiratory 20 18 Rate Blood Pressure 162/100 150/102 O2 Sat by Pulse 99 98 Oximetry EKG Findings - EKG Comments: EKG Findings:: Sinus rhythm rate of 80, IN interval 125, QRS duration 94, QTC 398, no ST segment elevation Medical Decision Making - Medical Decision Making 30-year-old female with right lower chest pain and right upper quadrant abdominal pain for the past several days. Patient is in moderate to severe pain upon arrival. Workup was initiated with concern for gallbladder pathology. Patient is in sinus rhythm she is hypertensive and tachycardic likely related to pain. Chest x-ray reveals no acute process. She has normal laboratory tests including normal white blood cell count, stable hemoglobin, normal electrolytes. Patient's did receive an ultrasound in the emergency department shows a large stone in the gallbladder neck. This is not currently associated with wall t hickening or pericholecystic fluid. The common bile duct is normal. I discussed case with Dr. Jimenez who will accept admission for operative management. - Lab Data Result diagrams: 11/03/21 08:20 11/03/21 08:20 Lab Results 11/03/21 11/03/21 11/03/21 Range/Units 08:20 08:20 08:20 WBC 10.5 (3.8-10.6) k/uL RBC 4.35 (3.80-5.40) m/uL Hgb 12.7 (11.4-16.0) gm/dL Hct 39.4 (34.0-46.0) % MCV 90.5 (80.0-100.0) fL MCH 29.1 (25.0-35.0) pg MCHC 32.2 (31.0-37.0) g/dL RDW 14.4 (11.5-15.5) % Plt Count 427 (150-450) k/uL MPV 8.1 Neutrophils % 72 % Lymphocytes % 21 % Monocytes % 3 % Eosinophils % 2 % Basophils % 1 % Neutrophils # 7.5 (1.3-7.7) k/uL Lymphocytes # 2.2 (1.0-4.8) k/uL Monocytes # 0.4 (0-1.0) k/uL Eosinophils # 0.2 (0-0.7) k/uL Basophils # 0.1 (0-0.2) k/uL PT 10.1 (9.0-12.0) sec INR 0.9 (<1.2) APTT 23.7 (22.0-30.0) sec Sodium 140 (137-145) mmol/L Potassium 4.0 (3.5-5.1) mmol/L Chloride 108 H (98-107) mmol/L Carbon Dioxide 22 (22-30) mmol/L Anion Gap 10 mmol/L BUN 8 (7-17) mg/dL Creatinine 0.76 (0.52-1.04) mg/dL Est GFR (CKD-EPI)AfAm >90 (>60 ml/min/1.73 sqM) Est GFR (CKD-EPI)NonAf >90 (>60 ml/min/1.73 sqM) Glucose 111 H (74-99) mg/dL Calcium 9.1 (8.4-10.2) mg/dL Magnesium 1.9 (1.6-2.3) mg/dL Total Bilirubin 0.4 (0.2-1.3) mg/dL AST 20 (14-36) U/L ALT 14 (4-34) U/L Alkaline Phosphatase 83 (38-126) U/L Troponin I (0.000-0.034) ng/mL Total Protein 7.6 (6.3-8.2) g/dL Albumin 4.5 (3.5-5.0) g/dL Lipase 76 (23-300) U/L Urine Color Urine Appearance (Clear) Urine pH (5.0-8.0) Ur Specific [place] (1.001-1.035) Urine Protein (Negative) Urine Glucose (UA) (Negative) Urine Ketones (Negative) Urine Blood (Negative) Urine Nitrite (Negative) Urine Bilirubin (Negative) Urine Urobilinogen (<2.0) mg/dL Ur Leukocyte Esterase (Negative) Urine RBC (0-5) /hpf Urine WBC (0-5) /hpf Ur Squamous Epith Cells (0-4) /hpf Urine Mucus (None) /hpf Urine HCG, Qual (Not Detectd) 11/03/21 11/03/21 11/03/21 Range/Units 08:20 08:20 08:20 WBC (3.8-10.6) k/uL RBC (3.80-5.40) m/uL Hgb (11.4-16.0) gm/dL Hct (34.0-46.0) % MCV (80.0-100.0) fL MCH (25.0-35.0) pg MCHC (31.0-37.0) g/dL RDW (11.5-15.5) % Plt Count (150-450) k/uL MPV Neutrophils % % Lymphocytes % % Monocytes % % Eosinophils % % Basophils % % Neutrophils # (1.3-7.7) k/uL Lymphocytes # (1.0-4.8) k/uL Monocytes # (0-1.0) k/uL Eosinophils # (0-0.7) k/uL Basophils # (0-0.2) k/uL PT (9.0-12.0) sec INR (<1.2) APTT (22.0-30.0) sec Sodium (137-145) mmol/L Potassium (3.5-5.1) mmol/L Chloride (98-107) mmol/L Carbon Dioxide (22-30) mmol/L Anion Gap mmol/L BUN (7-17) mg/dL Creatinine (0.52-1.04) mg/dL Est GFR (CKD-EPI)AfAm (>60 ml/min/1.73 sqM) Est GFR (CKD-EPI)NonAf (>60 ml/min/1.73 sqM) Glucose (74-99) mg/dL Calcium (8.4-10.2) mg/dL Magnesium (1.6-2.3) mg/dL Total Bilirubin (0.2-1.3) mg/dL AST (14-36) U/L ALT (4-34) U/L Alkaline Phosphatase (38-126) U/L Troponin I <0.012 (0.000-0.034) ng/mL Total Protein (6.3-8.2) g/dL Albumin (3.5-5.0) g/dL Lipase (23-300) U/L Urine Color Yellow Urine Appearance Clear (Clear) Urine pH 6.5 (5.0-8.0) Ur Specific [place] 1.016 (1.001-1.035) Urine Protein Negative (Negative) Urine Glucose (UA) Negative (Negative) Urine Ketones Negative (Negative) Urine Blood Small H (Negative) Urine Nitrite Negative (Negative) Urine Bilirubin Negative (Negative) Urine Urobilinogen <2.0 (<2.0) mg/dL Ur Leukocyte Esterase Negative (Negative) Urine RBC 6 H (0-5) /hpf Urine WBC 1 (0-5) /hpf Ur Squamous Epith Cells 1 (0-4) /hpf Urine Mucus Rare H (None) /hpf Urine HCG, Qual Not Detected (Not Detectd) Disposition Clinical Impression: Acute cholecystitis, Impacted gallstone of gallbladder Disposition: ADMITTED IP TO THIS HOSP Condition: Stable Is patient prescribed a controlled substance at d/c from ED?: No Referrals: Aroldo Noel DO [Primary Care Provider] - 1-2 days Time of Disposition: 09:44
[2021-11-03 08:40] LABS: Basophils # (A) 0.1 k/uL (0-0.2); Basophils % (A) 1 %; Eosinophils # (A) 0.2 k/uL (0-0.7); Eosinophils % (A) 2 %; HCT 39.4 % (34.0-46.0); HGB 12.7 gm/dL (11.4-16.0); Lymphocytes # (A) 2.2 k/uL (1.0-4.8); Lymphocytes % (A) 21 %; MCH 29.1 pg (25.0-35.0); MCHC 32.2 g/dL (31.0-37.0); MCV 90.5 fL (80.0-100.0); Mean Platelet Volume 8.1; Monocytes # (A) 0.4 k/uL (0-1.0); Monocytes % (A) 3 %; Neutrophils # (A) 7.5 k/uL (1.3-7.7); Neutrophils % (A) 72 %; Platelet Count 427 k/uL (150-450); RBC 4.35 m/uL (3.80-5.40); RDW 14.4 % (11.5-15.5); WBC 10.5 k/uL (3.8-10.6)
--- NOTE | 2021-11-03 08:44 | XR ---
EXAMINATION TYPE: XR chest 2V DATE OF EXAM: 11/03/2021 COMPARISON: NONE HISTORY: Pain TECHNIQUE: Frontal and lateral views of the chest are obtained. FINDINGS: There is no focal air space opacity, pleural effusion, or pneumothorax seen. The cardiac silhouette size is within normal limits. The osseous structures are intact. IMPRESSION: No acute cardiopulmonary process.
[2021-11-03 08:51] LABS: INR 0.9 (<1.2); Partial Thromboplastin Time 23.7 sec (22.0-30.0); Prothrombin Time 10.1 sec (9.0-12.0)
[2021-11-03 09:00] LABS: ALT 14 U/L (4-34); AST 20 U/L (14-36); African American GFR (CKD) >90 (>60 ml/min/1.73 sqM); Albumin 4.5 g/dL (3.5-5.0); Alkaline Phosphatase 83 U/L (38-126); Anion Gap 10 mmol/L; Blood Urea Nitrogen 8 mg/dL (7-17); Calcium 9.1 mg/dL (8.4-10.2); Carbon Dioxide 22 mmol/L (22-30); Chloride 108 mmol/L (98-107); Glucose 111 mg/dL (74-99); Lipase 76 U/L (23-300); Magnesium 1.9 mg/dL (1.6-2.3); Non-African American GFR(CKD) >90 (>60 ml/min/1.73 sqM); Sodium 140 mmol/L (137-145); Total Bilirubin 0.4 mg/dL (0.2-1.3); Total Protein 7.6 g/dL (6.3-8.2)
[2021-11-03 09:01] LABS: Appearance,Urine Clear (Clear); Bilirubin,Urine Negative (Negative); Blood,Urine Small (Negative); Color,Urine Yellow; Glucose,Urine (UA) Negative (Negative); Ketones,Urine Negative (Negative); Leukocyte Esterase,Urine Negative (Negative); Mucus,Urine Rare /hpf; Nitrite,Urine Negative (Negative); PH, Urine 6.5 (5.0-8.0); Protein,Urine Negative (Negative); RBC,Urine 6 /hpf (0-5); Specific Gravity,Urine 1.016 (1.001-1.035); Squamous Epithelial Cell,Urine 1 /hpf (0-4); Urobilinogen,Urine <2.0 mg/dL (<2.0); WBC,Urine 1 /hpf (0-5)
[2021-11-03] MEDS ORDERED: HYDROmorphone 1 MG/ML 1 ML SYRINGE IVP STA (09:14)
--- NOTE | 2021-11-03 09:25 | US ---
EXAMINATION TYPE: US gallbladder DATE OF EXAM: 11/03/2021 COMPARISON: NONE CLINICAL HISTORY: ruq pain. EXAM MEASUREMENTS: Liver Length: 16.6 cm Gallbladder Wall: 0.3 cm CBD: 0.4 cm Right Kidney: 10.2 x 3.4 x 4.9 cm Pancreas: Tail slightly obscured by overlying bowel gas Liver: wnl Gallbladder: large stone that appears in neck Evidence for sonographic Rajan's sign: yes CBD: wnl Right Kidney: No hydronephrosis or masses seen IMPRESSION: Gallstone within the gallbladder neck. Otherwise unremarkable study.
[2021-11-03] MEDS ORDERED: NALOXONE 0.4 MG/ML 1 ML VIAL IV PRN (09:41)
[2021-11-03] MEDS ORDERED: ONDANSETRON 4 MG/2 ML VIAL IVP PRN (09:41)
[2021-11-03] MEDS ORDERED: cefTRIAXone IN SWFI 1,000 MG/10 ML SYRINGE IVP STA (09:41)
[2021-11-03] MEDS: SODIUM CHLORIDE 0.9% 1,000 ML IV SCH ×3 (09:54→14:20)
--- NOTE | 2021-11-03 10:59 | P.GSHP ---
History of Present Illness H&P Date: 11/03/21 CHIEF COMPLAINT: Abdominal pain HISTORY OF PRESENT ILLNESS: This is a 30-year-old female who presented with complaints of right upper quadrant abdominal pain for the last 2 days. She describes the pain as sharp and stabbing. The pain had been up into the chest. She was rating her pain at 20 out of 10. After pain medication is down to 6 out of 10. She did have some nausea and vomiting and elevated usually has occurred in the mornings. She denies any fever chills or sweats. She had no improvement in her symptoms with taking Tums. She denies any prior surgical history denies being on any blood thinners. Abdominal ultrasound had shown gallstone within the gallbladder neck. Patient admits the hospital for acute cholecystitis. She does have a left broken ankle that she broke in August. This followed by Dr. Eller. Patient also has been mildly tachycardic and had elevated blood pressures on admission. PAST MEDICAL HISTORY: See list. PAST SURGICAL HISTORY: See list. MEDICATIONS: See list. ALLERGIES: See list. SOCIAL HISTORY: Patient smokes marijuana twice a week. REVIEW OF SYSTEMS: CONSTITUTIONAL: Denies fever or chills. HEENT: Denies blurred vision, vision changes, or eye pain. Denies hemoptysis CARDIOVASCULAR: Denies chest pain or pressure. RESPIRATORY: No shortness of breath. GASTROINTESTINAL: See HPI for pertinent findings HEMATOLOGIC: Denies bleeding disorders. GENITOURINARY: Denies any blood in urine or increased urinary frequency. SKIN: Denies pruitis. Denies rash. PHYSICAL EXAM: VITAL SIGNS: Reviewed GENERAL: Well-developed in no acute distress. HEENT: No sclera icterus. Extraocular movements grossly intact. Moist buccal mucosa. Head is atraumatic, normocephalic. No nasal drainage. ABDOMEN: Soft. Nondistended. Tenderness to palpation of the right upper quadrant NEUROLOGIC: Alert and oriented. Cranial nerves II through XII grossly intact. LABORATORY DATA: WBC is 10.5 Hgb 12.7 platelets 427 INR 0.9 Sodium 140 potassium 4.0 creatinine 0.76 LFTs are normal Troponin less then 0.012 Lipase 76 Urinalysis negative for infection. Urine hCG not detected IMAGING: Ultrasound with gallstones within the gallbladder neck. Otherwise unremarkable study. Positive Rajan sign ASSESSMENT: 1. Acute cholecystitis 2. Gallstone within the gallbladder neck noted on ultrasound PLAN: -Patient scheduled for laparoscopic cholecystectomy today with Dr. Jimenez -Keep patient nothing by mouth -Patient did receive a dose of IV Rocephin today. Continue IV antibiotics with IV Zosyn -Continue IV fluids -Continue pain medication -Continue Zofran as needed Physician Sharepoint [employer] Developer note has been reviewed by physician. Signing provider agrees with the documented findings, assessment, and plan of care. I have personally seen and examined the patient, reviewed the DIRECTOR SANITATION BUREAU /PAs history, exam and MDM and agree with the assessment and plan as written. Based on total visit time, I have performed more than 50% of the visit. As above: Patient presents with right upper quadrant pain and diagnostic studies along with physical exam and history consistent with acute calculus cholecystitis. Patient's liver enzymes are normal. Options reviewed. We'll proceed with laparoscopic, possible open cholecystectomy at this time. Risks of bleeding, infection, bile leak, bile duct injury, retained common bile duct stone, trocar injury, conversion to an open procedure, hernia, anesthesia related complications were reviewed. The patient understands and wishes to proceed. Past Medical History Past Medical History: No Reported History Additional Past Medical History / Comment(s): Gestational diabetes History of Any Multi-Drug Resistant Organisms: None Reported Past Surgical History: No Surgical Hx Reported Additional Past Surgical History / Comment(s): [place] teeth Past Anesthesia/Blood Transfusion Reactions: No Reported Reaction Past Psychological History: Depression Smoking Status: Former smoker Past Alcohol Use History: None Reported Past Drug Use History: None Reported - Past Family History Mother Family Medical History: No Reported History Medications and Allergies Home Medications Medication Instructions Recorded Confirmed Type Apri 1 tab PO DAILY 11/03/21 11/03/21 History Ibuprofen [Motrin] 800 mg PO Q8H 11/03/21 11/03/21 History Allergies Allergy/AdvReac Type Severity Reaction Status Date / Time No Known Allergies Allergy Verified 11/03/21 09:49 Surgical - Exam Vital Signs Temp Pulse Resp BP Pulse Ox 98.3 F 103 H 20 162/100 99 11/03/21 07:56 11/03/21 07:56 11/03/21 07:56 11/03/21 07:56 11/03/21 07:56 Results - Labs 11/03/21 08:20 11/03/21 08:20 Abnormal Lab Results - Last 24 Hours (Table) 11/03/21 11/03/21 Range/Units 08:20 08:20 Chloride 108 H (98-107) mmol/L Glucose 111 H (74-99) mg/dL Urine Blood Small H (Negative) Urine RBC 6 H (0-5) /hpf Urine Mucus Rare H (None) /hpf Diabetes panel 11/03/21 Range/Units 08:20 Sodium 140 (137-145) mmol/L Potassium 4.0 (3.5-5.1) mmol/L Chloride 108 H (98-107) mmol/L Carbon Dioxide 22 (22-30) mmol/L BUN 8 (7-17) mg/dL Creatinine 0.76 (0.52-1.04) mg/dL Glucose 111 H (74-99) mg/dL Calcium 9.1 (8.4-10.2) mg/dL AST 20 (14-36) U/L ALT 14 (4-34) U/L Alkaline Phosphatase 83 (38-126) U/L Total Protein 7.6 (6.3-8.2) g/dL Albumin 4.5 (3.5-5.0) g/dL Calcium panel 11/03/21 Range/Units 08:20 Calcium 9.1 (8.4-10.2) mg/dL Albumin 4.5 (3.5-5.0) g/dL Pituitary panel 11/03/21 Range/Units 08:20 Sodium 140 (137-145) mmol/L Potassium 4.0 (3.5-5.1) mmol/L Chloride 108 H (98-107) mmol/L Carbon Dioxide 22 (22-30) mmol/L BUN 8 (7-17) mg/dL Creatinine 0.76 (0.52-1.04) mg/dL Glucose 111 H (74-99) mg/dL Calcium 9.1 (8.4-10.2) mg/dL Adrenal panel 11/03/21 Range/Units 08:20 Sodium 140 (137-145) mmol/L Potassium 4.0 (3.5-5.1) mmol/L Chloride 108 H (98-107) mmol/L Carbon Dioxide 22 (22-30) mmol/L BUN 8 (7-17) mg/dL Creatinine 0.76 (0.52-1.04) mg/dL Glucose 111 H (74-99) mg/dL Calcium 9.1 (8.4-10.2) mg/dL Total Bilirubin 0.4 (0.2-1.3) mg/dL AST 20 (14-36) U/L ALT 14 (4-34) U/L Alkaline Phosphatase 83 (38-126) U/L Total Protein 7.6 (6.3-8.2) g/dL Albumin 4.5 (3.5-5.0) g/dL
[2021-11-03] MEDS ORDERED: HYDROmorphone 1 MG/ML 1 ML SYRINGE IVP ONE ×2 (12:00→12:15)
[2021-11-03] MEDS ORDERED: DEXAMETHASONE SOD PHOSPHATE 4 MG/ML 1 ML VIAL IV ONE (12:10)
[2021-11-03] MEDS ORDERED: SCOPOLAMINE 1 MG/72 HR PATCH TRANSDERM ONE (12:10)
[2021-11-03] MEDS ORDERED: GLYCOPYRROLATE 0.2 MG/ML 2 ML VIAL ONE (12:14)
[2021-11-03] MEDS ORDERED: MIDAZOLAM 2 MG/2 ML VIAL ONE (12:14)
[2021-11-03] MEDS ORDERED: LIDOCAINE 2% INJ 20 MG/ML (2 ML VIAL) ONE (12:14)
[2021-11-03] MEDS ORDERED: KETOROLAC 15 MG/ML 1 ML VIAL ONE (12:14)
[2021-11-03] MEDS ORDERED: NEOSTIGMINE 1 MG/ML 10 ML VIAL ONE (12:14)
[2021-11-03] MEDS ORDERED: ROCURONIUM 10 MG/ML (5 ML VIAL) IV ONE (12:14)
[2021-11-03] MEDS ORDERED: PROPOFOL 10 MG/ML 20 ML VIAL IV ONE (12:14)
[2021-11-03] MEDS ORDERED: fentaNYL (PF) 50 MCG/ML 2 ML AMP ONE (12:14)
[2021-11-03] MEDS ORDERED: ceFAZolin 1,000 MG VIAL ONE (12:14)
[2021-11-03] MEDS ORDERED: SODIUM CHLORIDE 0.9% 100 ML BAG ONE (12:14)
[2021-11-03] MEDS ORDERED: SUCCINYLCHOLINE CHLORIDE 100 MG/5 ML SYR IV ONE (12:14)
[2021-11-03] MEDS ORDERED: IV FLUID CONTINUATION 1,000 ML IV ONE (12:14)
[2021-11-03] MEDS ORDERED: HEPARIN SODIUM,PORCINE 5,000 UNIT/ML 1 ML VIAL SQ ONE (12:15)
[2021-11-03] MEDS ORDERED: BUPIVACAIN-EPI 0.25%-1:200,000 30 ML VIAL SQ ONE ×2 (12:40)
[2021-11-03] MEDS ORDERED: ACETAMINOPHEN TAB 325 MG TAB PO PRN (13:35)
--- NOTE | 2021-11-03 13:35 | P.OP ---
Date of Procedure: 11/03/21 Procedure(s) Performed: PREOPERATIVE DIAGNOSIS: Acute calculus cholecystitis POSTOPERATIVE DIAGNOSIS: Same PROCEDURE: Laparoscopic cholecystectomy SURGEON: Tony EBL: Minimal see anesthesia record ANESTHESIA: Gen. COMPLICATIONS: None OPERATIVE PROCEDURE: The patient was brought and placed on the operating room table in the supine position. The patient was placed under general anesthesia at that time. The abdomen was prepped and draped in the usual sterile fashion. A small vertical infraumbilical incision was made. The fascia was grasped with the Fernando forceps. The fascia was retracted anteriorly. The Veress needle was advanced into the peritoneal cavity. The saline drop test was normal. Ins ufflation took place up to 15 mmHg. A 5 mm optical trocar was advanced and the peritoneal cavity. 2 additional 5 mm trochars were placed in the right upper quadrant under direct visualization. A 12 mm trocar was advanced into the epigastric incision site. The gallbladder was acutely inflamed with an edematous wall. The gallbladder was retracted superiorly and laterally. The peritoneum overlying the infundibulum was bluntly dissected. The patient's cystic duct was visualized. The junction between the cystic duct common and hepatic duct was identified. The critical view of safety was achieved after blunt dissection. The cystic duct was then divided after placement of 3 12 mm clips on the patient's side and one on the specimen side. The cystic artery was identified and clipped as well. A small vessel was seen along the gallbladder fossa and clipped as well. The gallbladder was then removed from the liver bed using electrocautery. The gallbladder was then removed from the epigastric trocar site with an Endo Catch bag. The gallbladder fossa was irrigated with saline. There was no evidence of any bleeding or biliary drainage seen. The fascia at the 12 millimeter site was closed using a Jose-Marta 0 Vicryl stitch. The trochars were then removed. The skin at all 4 sites was closed using a 4-0 Monocryl stitch. Skin glue was utilized on the incision sites. At the end of this procedure the sponge and needle counts were correct. DISPOSITION: Stable to the recovery room
[2021-11-03] MEDS: HYDROmorphone 0.5 MG/0.5 ML SYRINGE IVP PRN (13:50)
[2021-11-03] MEDS ORDERED: diphenhydrAMINE 50 MG/ML 1 ML VIAL IVP ONE (13:51)
[2021-11-03] MEDS: HYDROcodone/APAP 5-325MG 1 EACH TAB PO PRN (14:56)
[2021-11-03] MEDS: HYDROmorphone 1 MG/ML 1 ML SYRINGE IVP PRN ×2 (17:07→20:47)
[2021-11-03] MEDS: PIPERACILLIN-TAZOBACTAM 3.375 GM in SODIUM CHLORIDE 0.9% 100 ML IVPB SCH (17:33)
[2021-11-03] MEDS: HEPARIN SODIUM,PORCINE/PF 5,000 UNIT/0.5 ML SYRINGE SQ SCH (17:33)
[2021-11-03] MEDS: KETOROLAC 15 MG/ML 1 ML VIAL IVP SCH (17:33)
[2021-11-04] MEDS: KETOROLAC 15 MG/ML 1 ML VIAL IVP SCH ×4 (00:30→17:58)
[2021-11-04] MEDS: PIPERACILLIN-TAZOBACTAM 3.375 GM in SODIUM CHLORIDE 0.9% 100 ML IVPB SCH ×3 (00:31→15:36)
[2021-11-04] MEDS: HEPARIN SODIUM,PORCINE/PF 5,000 UNIT/0.5 ML SYRINGE SQ SCH ×3 (00:31→15:36)
[2021-11-04] MEDS: HYDROcodone/APAP 5-325MG 1 EACH TAB PO PRN ×3 (00:40→15:36)
[2021-11-04] MEDS: SODIUM CHLORIDE 0.9% 1,000 ML IV SCH ×3 (00:53→20:24)
[2021-11-04] MEDS: HYDROmorphone 1 MG/ML 1 ML SYRINGE IVP PRN ×4 (03:18→19:40)
[2021-11-04 12:58] LABS: Basophils % (A) 1 %; Eosinophils # (A) 0.1 k/uL (0-0.7); Eosinophils % (A) 1 %; HCT 33.9 % (34.0-46.0); HGB 10.7 gm/dL (11.4-16.0); Lymphocytes # (A) 2.6 k/uL (1.0-4.8); Lymphocytes % (A) 31 %; MCH 28.9 pg (25.0-35.0); MCHC 31.5 g/dL (31.0-37.0); MCV 91.6 fL (80.0-100.0); Mean Platelet Volume 8.3; Monocytes # (A) 0.3 k/uL (0-1.0); Monocytes % (A) 4 %; Neutrophils # (A) 5.1 k/uL (1.3-7.7); Neutrophils % (A) 62 %; Platelet Count 310 k/uL (150-450); RBC 3.71 m/uL (3.80-5.40); RDW 13.8 % (11.5-15.5); WBC 8.2 k/uL (3.8-10.6)
[2021-11-04 13:11] LABS: ALT 22 U/L (4-34); AST 27 U/L (14-36); African American GFR (CKD) >90 (>60 ml/min/1.73 sqM); Albumin 3.6 g/dL (3.5-5.0); Albumin/Globulin Ratio 1.4; Alkaline Phosphatase 60 U/L (38-126); Anion Gap 8 mmol/L; Blood Urea Nitrogen 7 mg/dL (7-17); Calcium 8.6 mg/dL (8.4-10.2); Carbon Dioxide 23 mmol/L (22-30); Chloride 109 mmol/L (98-107); Globulin 2.6 g/dL; Glucose 90 mg/dL (74-99); Non-African American GFR(CKD) 90 (>60 ml/min/1.73 sqM); Potassium 3.8 mmol/L (3.5-5.1); Sodium 140 mmol/L (137-145); Total Bilirubin 0.3 mg/dL (0.2-1.3); Total Protein 6.2 g/dL (6.3-8.2)
--- NOTE | 2021-11-04 13:24 | P.PN ---
Subjective Progress Note Date: 11/04/21 CHIEF COMPLAINT: Acute calculus cholecystitis HISTORY OF PRESENT ILLNESS: Patient is postop day #1 status post laparoscopic cholecystectomy. Patient complaining of abdominal pain. She reports that her pain feels about the same as yesterday heart surgery in that right upper quadrant. She's also having some incisional pain. She denies any flatus or bowel movement. Denies any nausea or vomiting. She is able to tolerate diet. She is afebrile. WBC is 8.2 hemoglobin 10.7 platelets 310 sodium 140 potassium 3.8 creatinine 0.87 LFTs and total bilirubin are within normal range PHYSICAL EXAM: VITAL SIGNS: Reviewed. GENERAL: Well-developed in no acute distress. HEENT: No sclera icterus. Extraocular movements grossly intact. Moist buccal mucosa. Head is atraumatic, normocephalic. ABDOMEN: Soft. Mildly distended. Tenderness to palpation in the right upper quadrant and upper incision site. Incision sites are clean dry and intact. NEUROLOGIC: Alert and oriented. Cranial nerves II through XII grossly intact. ASSESSMENT: 1. Acute calculus cholecystitis status post laparoscopic cholecystectomy 2. History of marijuana use PLAN: -Add Mylicon drops gas pain -Ordered abdominal binder -Continue pain management -Encourage patient to ambulate -Continue antibiotics -DVT prophylaxis subcu heparin -Possible discharge tomorrow if pain is controlled Physician Flute Polisher note has been reviewed by physician. Signing provider agrees with the documented findings, assessment, and plan of care. I have personally seen and examined the patient, reviewed the FAST FOOD SHIFT LEAD /PAs history, exam and MDM and agree with the assessment and plan as written. Based on total visit time, I have performed more than 50% of the visit. As above: Patient says her pain is slightly improved. Still having too much pa in she believes to go home however. Mild tenderness on exam. Incisions are clean and dry. We'll check lab work from today. Anticipate discharge tomorrow. Objective - Vital Signs Vital signs: Vital Signs Temp 97.7 F 11/04/21 07:54 Pulse 61 11/04/21 07:54 Resp 18 11/04/21 08:00 BP 114/72 11/04/21 07:54 Pulse Ox 99 11/04/21 07:54 FiO2 Intake & Output 11/03/21 11/04/21 11/04/21 18:59 06:59 18:59 Intake Total 1600 Output Total 5 Balance 1595 Weight 72.5 kg Intake: IV 1600 Output: Estimated Blood Loss 5 Other: # Voids 1 5 - Labs CBC & Chem 7: 11/04/21 12:37 11/04/21 12:37 Labs: Abnormal Lab Results - Last 24 Hours (Table) 11/04/21 11/04/21 Range/Units 12:37 12:37 RBC 3.71 L (3.80-5.40) m/uL Hgb 10.7 L (11.4-16.0) gm/dL Hct 33.9 L (34.0-46.0) % Chloride 109 H (98-107) mmol/L Total Protein 6.2 L (6.3-8.2) g/dL
[2021-11-04] MEDS: SIMETHICONE 40 MG/0.6 ML DROPS 2,000 MG/30 ML BOTTLE PO SCH ×3 (13:37→19:39)
[2021-11-04 21:04] VITALS: RESP 18
[2021-11-05] MEDS: KETOROLAC 15 MG/ML 1 ML VIAL IVP SCH ×3 (00:08→11:36)
[2021-11-05] MEDS: HEPARIN SODIUM,PORCINE/PF 5,000 UNIT/0.5 ML SYRINGE SQ SCH ×2 (00:08→07:38)
[2021-11-05] MEDS: PIPERACILLIN-TAZOBACTAM 3.375 GM in SODIUM CHLORIDE 0.9% 100 ML IVPB SCH ×2 (00:09→07:38)
[2021-11-05] MEDS: HYDROmorphone 1 MG/ML 1 ML SYRINGE IVP PRN (01:46)
[2021-11-05] MEDS: HYDROcodone/APAP 5-325MG 1 EACH TAB PO PRN (04:02)
[2021-11-05] MEDS: SODIUM CHLORIDE 0.9% 1,000 ML IV SCH ×2 (04:51→05:53)
[2021-11-05] MEDS: HYDROmorphone 0.5 MG/0.5 ML SYRINGE IVP PRN (07:38)
[2021-11-05] MEDS: SIMETHICONE 40 MG/0.6 ML DROPS 2,000 MG/30 ML BOTTLE PO SCH (07:40)
[2021-11-05 07:53] VITALS: BP 120/78; PULSE 70; TEMP 98.2
[2021-11-05 08:52] LABS: Basophils # (A) 0.06 X 10*3/uL (0.00-0.10); Basophils % (A) 0.7 %; Eosinophils # (A) 0.11 X 10*3/uL (0.04-0.35); Eosinophils % (A) 1.3 %; HCT 32.8 % (37.2-46.3); HGB 10.3 g/dL (12.0-15.0); Immature Grans, Automated 0.3 %; Lymphocytes # (A) 3.76 X 10*3/uL (0.90-5.00); Lymphocytes % (A) 43.1 %; MCH 28.7 pg (27.0-32.0); MCHC 31.4 g/dL (32.0-37.0); MCV 91.4 fL (80.0-97.0); Mean Platelet Volume 10.8 fL (9.5-12.2); Monocytes # (A) 0.53 X 10*3/uL (0.20-1.00); Monocytes % (A) 6.1 %; NRBC Per 100 WBC 0 /100 WBCS (0.0-0.0); Neutrophils # (A) 4.24 X 10*3/uL (1.80-7.70); Neutrophils % (A) 48.5 %; Platelet Count 329 X 10*3/uL (140-440); RBC 3.59 X 10*6/uL (4.10-5.20); RDW 14.4 % (11.5-14.5); WBC 8.73 X 10*3/uL (4.50-10.00)
--- NOTE | 2021-11-05 12:39 | P.DS ---
Providers Date of admission: 11/03/21 09:42 Expected date of discharge: 11/05/21 Attending physician: Molina Jimenez Primary care physician: Aroldo Noel Hospital Course: Discharge diagnosis 1. Acute calculus cholecystitis status post laparoscopic cholecystectomy Hospital course This is a 30-year-old female who presented with complaints of right upper quadrant abdominal pain for the last 2 days. She describes the pain as sharp an d stabbing. Abdominal ultrasound had shown gallstone within the gallbladder neck. Patient admitted to the hospital for acute cholecystitis. Patient status post laparoscopic cholecystectomy. She tolerated surgery well. Her pain is controlled. She is tolerating diet. She's afebrile. She's up and ambulating. Incision sites clean dry and intact. She stable for discharge. Physician Tug Master note has been reviewed by physician. Signing provider agrees with the documented findings, assessment, and plan of care. Patient Condition at Discharge: Stable Plan - Discharge Summary Discharge Rx Participant: No New Discharge Prescriptions: New Simethicone 40 mg/0.6 ml Drops [Mylicon Drops] 40 mg PO QID ml HYDROcodone/APAP 5-325MG [Faber 5-325] 1 tab PO Q6HR PRN 3 Days #10 tab PRN Reason: Pain Continue Apri 1 tab PO DAILY Ibuprofen [Motrin] 800 mg PO Q8H Discharge Medication List Apri 1 tab PO DAILY 11/03/21 [History] Ibuprofen [Motrin] 800 mg PO Q8H 11/03/21 [History] HYDROcodone/APAP 5-325MG [Faber 5-325] 1 tab PO Q6HR PRN 3 Days #10 tab 11/05/21 [Rx] Simethicone 40 mg/0.6 ml Drops [Mylicon Drops] 40 mg PO QID ml 11/05/21 [Rx] Follow up Appointment(s)/Referral(s): Aroldo Noel DO [Primary Care Provider] - 1-2 days Molina Jimenez MD [Medical Doctor] - 1 Week Patient Instructions/Handouts: *Surgery [facility] - Scopalamine Patch Instructions Activity/Diet/Wound Care/Special Instructions: No driving while taking Faber No lifting over 10 pounds You may shower. No soaking or tub baths for 2 weeks Very light activity until you are reevaluated at your follow up appointment with your surgeon Continue low fat diet Discharge Disposition: HOME SELF-CARE
== END 2021-11-05 14:05 | disposition home or self-care (01) ==
LOC: EC 07:55 → 6NMEDSUR 09:42
PROVIDERS: ADMIT Surgery; ATTEND Surgery
DX: K80.12 Calculus of gallbladder with acute and chronic cholecystitis without obstruction (principal); E11.9 Type 2 diabetes mellitus without complications; F32.A Depression, unspecified; Z87.891 Personal history of nicotine dependence; Z79.1 Long term (current) use of non-steroidal anti-inflammatories (NSAID); Z79.3 Long term (current) use of hormonal contraceptives; Z86.32 Personal history of gestational diabetes; G35 Multiple sclerosis
CPT/HCPCS: 96376; 96361; 96374; 96375; 99285; 36415; 93005; 81025 ×2; 88304; 80053 ×2; 83690; 83735; 84484; 85025 ×3; 85610; 85730; 81001; 71046; 76705; 47562; G0378 ×3; J2543 ×3; J2250; J1200; J1644 ×4; J1100; J2710; J2405; J0690; J0696; J3010; J1170 ×5; J1885 ×3; J0330; J2704; J2001

== ENCOUNTER 2022-09-29 19:46 | Emergency (ER) | payer OTHER ==
[2022-09-29 20:14] VITALS: RESP 18
[2022-09-29] MEDS ORDERED: KETOROLAC 15 MG/ML 1 ML VIAL IM STA (20:20)
[2022-09-29 20:28] VITALS: BP 131/98; PULSE 106; TEMP 98.6
[2022-09-29] MEDS ORDERED: HYDROmorphone 0.5 MG/0.5 ML SYRINGE IM STA (21:30)
--- NOTE | 2022-09-29 21:32 | ED ---
Lower Extremity Injury HPI - General Chief Complaint: Extremity Injury, Lower Stated Complaint: R FOOT INJURY Time Seen by Provider: 09/29/22 20:17 Source: patient Mode of arrival: ambulatory Limitations: no limitations - History of Present Illness Initial Comments: Patient is a 31-year-old female presents to the emergency department for right ankle pain. Patient jumped off a playground toy approximately 1-2 feet and twisted her ankle. Patient has significant pain to the outside of her right ankle worsened with ambulation. She denies any numbness and tingling. Patient states she broke her right ankle around this time last year she wore a follow-up with Dr. Waters. Surgical intervention was not indicated. - Related Data Home Medications Medication Instructions Recorded Confirmed Apri 1 tab PO DAILY 11/03/21 11/03/21 Ibuprofen [Motrin] 800 mg PO Q8H 11/03/21 11/03/21 Previous Rx's Medication Instructions Recorded HYDROcodone/APAP 5-325MG [Terrell 1 tab PO Q6HR PRN 3 Days #10 tab 11/05/21 5-325] Simethicone 40 mg/0.6 ml Drops 40 mg PO QID ml 11/05/21 [Mylicon Drops] Ibuprofen [Motrin] 600 mg PO Q8HR PRN #30 tab 09/29/22 Allergies Allergy/AdvReac Type Severity Reaction Status Date / Time No Known Allergies Allergy Verified 09/29/22 20:14 Review of Systems ROS Statement: Those systems with pertinent positive or pertinent negative responses have been documented in the HPI. ROS Other: All systems not noted in ROS Statement are negative. Past Medical History Past Medical History: No Reported History Additional Past Medical History / Comment(s): Gestational diabetes History of Any Multi-Drug Resistant Organisms: None Reported Past Surgical History: No Surgical Hx Reported Additional Past Surgical History / Comment(s): [place] teeth Past Anesthesia/Blood Transfusion Reactions: No Reported Reaction Past Psychological History: Depression Smoking Status: Never smoker Past Alcohol Use History: None Reported Past Drug Use History: None Reported - Past Family History Mother Family Medical History: No Reported History General Exam Limitations: no limitations General appearance: alert, in no apparent distress Head exam: Present: atraumatic, normocephalic, normal inspection Eye exam: Present: normal appearance, PERRL, EOMI. Absent: scleral icterus, conjunctival injection, periorbital swelling Respiratory exam: Present: normal lung sounds bilaterally. Absent: respiratory distress, wheezes, rales, rhonchi, stridor Cardiovascular Exam: Present: regular rate, normal rhythm, normal heart sounds. Absent: systolic murmur, diastolic murmur, rubs, gallop, clicks Right Knee exam: Present: normal inspection, full ROM. Absent: tenderness, swelling Lower Leg exam: Present: normal inspection, full ROM. Absent: tenderness, swelling Ankle exam: Present: full ROM, tenderness (lateral), swelling (significant lateral ). Absent: normal inspection, abrasion, laceration, ecchymosis, deformity, crepitus, dislocation, erythema, anterior draw sign Foot/Toe exam: Present: normal inspection, full ROM. Absent: tenderness, swelling Neurovascular tendon exam: Present: no vascular compromise Neurological exam: Present: alert, oriented X3, CN II-XII intact Psychiatric exam: Present: normal affect, normal mood Skin exam: Present: warm, dry, intact, normal color. Absent: rash Course Vital Signs 09/29/22 09/29/22 20:09 20:24 Temperature 98.1 F 98.6 F Pulse Rate 138 H 106 H Respiratory 18 18 Rate Blood Pressure 135/86 131/98 O2 Sat by Pulse 99 97 Oximetry Medical Decision Making - Medical Decision Making Was pt. sent in by a medical professional or institution (, PA, BIOSTATISTICS PROFESSOR, urgent care, hospital, or half-way...) When possible be specific @ -No Did you speak to anyone other than the patient for history (EMS, parent, family, police, friend...)? What history was obtained from this source @ -No Did you review nursing and triage notes (agree or disagree)? Why? @ -I reviewed and agree with nursing and triage notes Were old charts reviewed (outside hosp., previous admission, EMS record, old EKG, old radiological studies, urgent care reports/EKG's, half-way records)? Report findings @ -No old charts were reviewed Differential Diagnosis (chest pain, altered mental status, abdominal pain women, abdominal pain men, vaginal bleeding, weakness, fever, dyspnea, syncope, headache, dizziness, GI bleed, back pain, seizure, CVA, palpatations, mental health)? @ -[not ankle fracture, ankle sprain, contusion EKG interpreted by me (3pts min.). @ -As above X-rays interpreted by me (1pt min.). @ -Yes, right ankle x-ray shows remote distal fibular fracture. There is soft tissue swelling on the distal fibula with no acute fracture definitively visualized however with swelling osseous abnormalities excluded CT interpreted by me (1pt min.). @ -None done U/S interpreted by me (1pt. min.). @ -None done What testing was considered but not performed or refused? (CT, X-rays, U/S, labs)? Why? @ -None What meds were considered but not given or refused? Why? @ -None Did you discuss the management of the patient with other professionals (professionals i.e. , PA, BIOSTATISTICS PROFESSOR, lab, RT, psych nurse, social media senior associate, marble polisher, teacher, correction officer city or county jail, manager rn case)? Give summary @ -No Was smoking cessation discussed for >3mins.? @ -No Was critical care preformed (if so, how long)? @ -No Were there social determinants of health that impacted care today? How? (Homelessness, low income, unemployed, alcoholism, drug addiction, transportation, low edu. Level, literacy, decrease access to med. care, skilled nursing, rehab)? @ -No Was there de-escalation of care discussed even if they declined (Discuss DNR or withdrawal of care, Hospice)? DNR status @ -No What co-morbidities impacted this encounter? (DM, HTN, Smoking, COPD, CAD, Cancer, CVA, ARF, Chemo, Hep., AIDS, mental health diagnosis, sleep apnea, morbid obesity)? @ -None Was patient admitted / discharged? Hospital course, mention meds given and route, prescriptions, significant lab abnormalities, going to OR and other pertinent info. @ -Presenting for right ankle injury. There significant swelling and te nderness of the lateral aspect of the right ankle. No obvious deformity. DP 2+. Sensation intact. Right ankle x-ray shows remote distal fibular fracture. There is no acute fracture definitively visualized however given swelling of the distal fibula osseous abnormality cannot be ruled out. Patient given Toradol with poor control pain. She was then given 1 dose of Dilaudid. She was placed in Aircast splint and given crutches. We discussed sprain care in detail. Patient will not bear any weight until orthopedic evaluation. Undiagnosed new problem with uncertain prognosis? @ -No Drug Therapy requiring intensive monitoring for toxicity (Heparin, Nitro, Insulin, Cardizem)? @ -No Were any procedures done? @ -yes, splinting Diagnosis/symptom? @ -right ankle sprain Acute, or Chronic, or Acute on Chronic? @ -acute Uncomplicated (without systemic symptoms) or Complicated (systemic symptoms)? @ -uncomplicated Side effects of treatment? @ -[No] Exacerbation, Progression, or Severe Exacerbation? @ -[No] Poses a threat to life or bodily function? How? (Chest pain, [place], [place], pneumonia, PE, COPD, DKA, ARF, appy, cholecystitis, CVA, Diverticulitis, Homicidal, Suicidal, threat to staff... and all critical care pts) @ -[No] Dr. Church is my attending Disposition Clinical Impression: Right ankle sprain Disposition: HOME SELF-CARE Condition: Good Instructions (If sedation given, give patient instructions): Ankle Sprain (ED) Additional Instructions: Rest and elevate the joint as much as possible. Ice the injury for the next 24- 48 hours. If symptoms continue after, apply warm compress. Keep ankle splint on and use crutches to not bear weight until orthopedic evaluation. Take Tylenol or Motrin as needed for pain. Save Tylenol 3 for severe pain. Follow- up with orthopedics teacher in 1 to 2 days. Return to the emergency department if you experience new, concerning, or worsening symptoms. Prescriptions: Ibuprofen [Motrin] 600 mg PO Q8HR PRN #30 tab PRN Reason: Pain Is patient prescribed a controlled substance at d/c from ED?: No Referrals: Aroldo Noel DO [Primary Care Provider] - 1-2 days Jose Carlos Beckman MD [STAFF PHYSICIAN] - 1-2 days
--- NOTE | 2022-09-29 21:32 | XR ---
EXAMINATION TYPE: XR ankle complete RT DATE OF EXAM: 09/29/2022 9:11 PM INDICATION: Patient age:Female; 31 years old; Reason for study: injury; COMPARISON: None TECHNIQUE: The right ankle is imaged in frontal, lateral and oblique projections. FINDINGS: Soft tissue swelling on the distal fibula. There appears to be a remote injury to the fibular head. N o obvious acute fracture visualized. IMPRESSION: Remote distal fibular fracture. Given associated swelling superimposed acute injury either soft tissu e or osseous is not entirely excluded. No acute fracture is definitively visualized however.
[2022-09-29] MEDS ORDERED: ACET/COD 300 MG/30 MG STARTER PACK 6 TAB BTL PO STA (21:41)
== END 2022-09-29 22:08 | disposition home or self-care (01) ==
LOC: EC 19:46
DX: S93.401A Sprain of unspecified ligament of right ankle, initial encounter (principal); F32.A Depression, unspecified; Z79.899 Other long term (current) drug therapy; W09.8XXA Fall on or from other playground equipment, initial encounter
CPT/HCPCS: 99283; 96372 ×2; 73610; J1885; J1170

== ENCOUNTER 2024-12-24 17:17 | Emergency (ER) | payer OTHER ==
--- NOTE | 2024-12-24 17:50 | ED ---
General Adult HPI - General Source: patient, RN notes reviewed Mode of arrival: ambulatory Limitations: no limitations <Billy Pacheco - Last Filed: 12/24/24 17:48> - General Source: patient, RN notes reviewed Mode of arrival: ambulatory Limitations: no limitations <Sara John - Last Filed: 12/26/24 20:57> - General Chief complaint: Shortness of Breath Stated complaint: SOB Time Seen by Provider: 12/24/24 17:29 - History of Present Illness Initial comments: Quick note: This is a 34-year-old female presenting from PCPs office for sepsis concerns. Patient states that PCP was concern for sepsis after discovery of possible UTI with leukocytosis and tachycardia, advising patient to go to the ER for further evaluation. Patient denies significant urinary symptoms at this time. Patient does endorse constant body aches, lightheadedness/dizziness and shortness of breath since giving 8 weeks ago. Denies associated reproducible chest pain, lower extremity edema, abdominal pain, N/V/D. Patient does endorse history of anxiety. (Billy Pacheco) 34-year-old female presented the ER for evaluation of shortness of breath. Patient reports she is 8 weeks from an uncomplicated vaginal delivery. She has been following up with [facility] as left lower extremity edema has not subsided since delivery. She reports she had ultrasound completed which was negative for DVTs. Patient had laboratory studies drawn which were concerning which prompted patient to be sent to the ER for further evaluation. Patient reports she has had continued swelling to the left lower extremity. Denies injuries or traumas. Denies history of DVTs. No current blood thinner use. Patient does admit to shortness of breath and states it is only when having "anxiety attacks". She also endorses dizziness and lightheadedness during this attacks. She denies any fevers, chills, nausea, vomiting, abdominal pain, constipation, diarrhea, vaginal bleeding or discharge. Denies any urinary complaints. Patient follows up with Dr. Gr. Patient reports PCP had concerns of sepsis as patient had positive urine culture, tachycardia and leukocytosis. (Sara John) - Related Data Home Medications Medication Instructions Recorded Confirmed Apri 1 tab PO DAILY 11/03/21 10/28/24 Ibuprofen [Motrin] 800 mg PO Q8H 11/03/21 10/28/24 Cariprazine HCl [Vraylar] 1 tab PO DAILY 10/28/24 Cetirizine HCl 1 tab PO DAILY 10/28/24 10/28/24 FLUoxetine HCL 1 tab PO DAILY 10/28/24 10/28/24 Nitrofurantoin Monohyd/M-Cryst 1 tab PO DAILY 10/28/24 10/28/24 [Macrobid] Vit No.179/Iron/Folic 1 tab PO DAILY 10/28/24 10/28/24 [ Tablet] Previous Rx's Medication Instructions Recorded HYDROcodone/APAP 5-325MG [[place] 1 tab PO Q6HR PRN 3 Days #10 tab 11/05/21 5-325] Ibuprofen [Motrin] 600 mg PO Q8HR PRN #30 tab 09/29/22 Nitrofurantoin Monohyd/M-Cryst 100 mg PO Q12HR #14 cap 12/25/24 [Macrobid] Allergies Allergy/AdvReac Type Severity Reaction Status Date / Time No Known Allergies Allergy Verified 09/29/22 20:14 Review of Systems ROS Other: All systems not noted in ROS Statement are negative. <Billy Pacheco - Last Filed: 12/24/24 17:48> ROS Other: All systems not noted in ROS Statement are negative. <Sara John - Last Filed: 12/26/24 20:57> ROS Statement: Those systems with pertinent positive or pertinent negative responses have been documented in the HPI. Past Medical History Past Medical History: No Reported History Additional Past Medical History / Comment(s): Gestational diabetes previous , endometriosis History of Any Multi-Drug Resistant Organisms: None Reported Past Surgical History: No Surgical Hx Reported Additional Past Surgical History / Comment(s): [place] teeth Past Anesthesia/Blood Transfusion Reactions: No Reported Reaction Past Psychological History: Anxiety, Depression Smoking Status: Never smoker Past Alcohol Use History: None Reported Past Drug Use History: None Reported - Past Family History Mother Family Medical History: No Reported History <Billy Pacheco - Last Filed: 12/24/24 17:48> General Exam Limitations: no limitations <Billy Pacheco - Last Filed: 12/24/24 17:48> Limitations: no limitations General appearance: alert, in no apparent distress Respiratory exam: Present: normal lung sounds bilaterally. Absent: respiratory distress, wheezes, rales, rhonchi, stridor Cardiovascular Exam: Present: normal rhythm, tachycardia, normal heart sounds GI/Abdominal exam: Present: soft, normal bowel sounds. Absent: distended, tenderness, guarding, rebound, rigid Extremities exam: Present: full ROM, normal capillary refill (2+ bilateral DP pulse.), pedal edema (Nonpitting left foot) Neurological exam: Present: alert, oriented X3, CN II-XII intact Skin exam: Present: warm, dry, intact, normal color. Absent: rash <Sara John - Last Filed: 12/26/24 20:57> - General Exam Comments Initial Comments: Visual Physical Exam Vital signs reviewed General: Well-appearing, nontoxic, no acute distress. Head: Normocephalic, atraumatic Eyes: PERRLA, EOMI ENT: Airway patent Chest: Nonlabored breathing Skin: No visual rash, normal skin tone Neuro: Alert and oriented 3 Musculoskeletal: No gross abnormalities (Billy Pacheco) Course <Sara John - Last Filed: 12/26/24 20:57> Vital Signs 12/24/24 12/24/24 12/24/24 17:24 21:58 22:01 Temperature 98.6 F 98.4 F Pulse Rate 109 H 107 H Respiratory 20 18 20 Rate Blood Pressure 106/69 124/88 O2 Sat by Pulse 98 100 Oximetry 12/25/24 03:00 Temperature 98.2 F Pulse Rate 89 Respiratory 18 Rate Blood Pressure 139/99 O2 Sat by Pulse 99 Oximetry - Reevaluation(s) Reevaluation #1: 12/25/24 00:47 Patient reevaluated. No signs of acute distress. Patient reporting anxiety with no current short of breath. She is currently working on antianxiety medications outpatient. (Sara John) Medical Decision Making <Billy Pacheco - Last Filed: 12/24/24 17:48> - Lab Data Result diagrams: 12/24/24 23:09 12/24/24 23:09 - EKG Data -: EKG Interpreted by Ne - Radiology Data Radiology results: report reviewed, image reviewed <Sara John - Last Filed: 12/26/24 20:57> - Medical Decision Making I completed the quick note portion of this chart signed DANNIELLE Miranda (Billy Pacheco) Was pt. sent in by a medical professional or institution ([facility] Shelton, CLASSIFIED AD TAKER, urgent care, hospital, or custodial...) When possible be specific @ -Patient sent by PCP for further evaluation of left lower extremity edema and tachycardia. Did you speak to anyone other than the patient for history (EMS, parent, family, police, friend...)? What history was obtained from this source @ -No Did you review nursing and triage notes (agree or disagree)? Why? @ -I reviewed and agree with nursing and triage notes Were old charts reviewed (outside hosp., previous admission, EMS record, old EKG, old radiological studies, urgent care reports/EKG's, custodial records)? Report findings @ -Ultrasound venous Doppler left lower extremity radiology report completed on 12-17-2024 at [facility] reviewed and negative for evidence of DVT. Differential Diagnosis (chest pain, altered mental status, abdominal pain women, abdominal pain men, vaginal bleeding, weakness, fever, dyspnea, syncope, headache, dizziness, GI bleed, back pain, seizure, CVA, palpatations, mental health, musculoskeletal)? @ -Differential Dyspnea:Coronary syndrome, arrhythmia, tamponade, asthma, COPD, pulmonary embolism, pneumonia, pneumothorax, pulmonary effusion, anaphylaxis, diabetic ketoacidosis, flailed chest, pulmonary contusion, diaphragmatic rupture, anemia, neuromuscular, this is not meant to be an all-inclusive list. EKG interpreted by me (3pts min.). @ -As above X-rays interpreted by me (1pt min.). @ -CXR interpreted me negative for focal consolidations, pneumothorax or pleural effusions. CT interpreted by me (1pt min.). @ -None done U/S interpreted by me (1pt. min.). @ -None done What testing was considered but not performed or refused? (CT, X-rays, U/S, labs)? Why? @ -None What meds were considered but not given or refused? Why? @ -None Did you discuss the management of the patient with other professionals (professionals i.e. [facility] Shelton, CLASSIFIED AD TAKER, lab, RT, psych nurse, social worker aide, dispatcher clerk, teacher, tactical deception plans officer, welfare case worker)? Give summary @ -No Was smoking cessation discussed for >3mins.? @ -No Was critical care preformed (if so, how long)? @ -No Were there social determinants of health that impacted care today? How? (Homelessness, low income, unemployed, alcoholism, drug addiction, transportation, low edu. Level, literacy, decrease access to med. care, assisted, rehab)? @ -No Was there de-escalation of care discussed even if they declined (Discuss DNR or withdrawal of care, Hospice)? DNR status @ -No What co-morbidities impacted this encounter? (DM, HTN, Smoking, COPD, CAD, Cancer, CVA, ARF, Chemo, Hep., AIDS, mental health diagnosis, sleep apnea, morbid obesity)? @ -None Was patient admitted / discharged? Hospital course, mention meds given and route, prescriptions, significant lab abnormalities, going to OR and other pertinent info. @ -Discharge. 34-year-old female presented the ER for evaluation of shortness of breath and left lower extremity edema.Workup initiated in triage given bed availability in emergency department. Upon arrival patient tachycardic at 109 bpm vitals otherwise stable. After rooming history and physical exam completed. Patient remained tachycardic but vital signs stable. Upon my examination, patient is well-appearing and no signs of acute respiratory distress. Breathing unlabored and lung sounds clear throughout all lung christina. Laboratory studies obtained remarkable for leukocytosis of 13.9. Microcytic hypochromic anemia hemoglobin 9.6 is likely due to recent vaginal delivery. Hemoglobin has increased from hemoglobin 7.4. Mild elevation in AST 47, ALT 51. TSH 0.73. Serum hCG <2.4. Given tachycardia and patient reporting shortness of breath during "anxiety attacks" D-dimer ordered and negative, 0.25. EKG showing sinus rhythm. Urinalysis concerning of infection with many bacteria, greater than 182 WBCs and positive nitrates this will be sent for culture. Chest x-ray negative. Tachycardia believed to be stemming from anemia and/or anxiety. Patient reports she is following up outpatient regarding initiation of anxiety medications. Upon reevaluation, patient educated on today's findings. Patient remained stable throughout emergency department stay. She is comfortable with discharge. Patient provided with IV fluid bolus along with IV Rocephin prior to discharge for treatment of UTI. Macrobid prescribed. Advise close follow-up with PCP. Strict return parameters discussed. Patient verbally expressed understanding and agreement with care plan. Case discussed with ED attending, Dr. Church. Undiagnosed new problem with uncertain prognosis? @ -No Drug Therapy requiring intensive monitoring for toxicity (Heparin, Nitro, Insulin, Cardizem)? @ -No Were any procedures done? @ -No Diagnosis/symptom? @ -UTI/anemia/tachycardia Acute, or Chronic, or Acute on Chronic? @ -Acute Uncomplicated (without systemic symptoms) or Complicated (systemic symptoms)? @ -Uncomplicated Side effects of treatment? @ -No Exacerbation, Progression, or Severe Exacerbation? @ -No Poses a threat to life or bodily function? How? (Chest pain, [place], [place], pneumonia, PE, COPD, DKA, ARF, appy, cholecystitis, CVA, Diverticulitis, Homicidal, Suicidal, threat to staff... and all critical care pts) @ -Low at this time (Sara John) - Lab Data Lab Results 12/24/24 12/24/24 12/24/24 Range/Units 23:09 23:09 23:09 WBC 13.99 H (4.50-10.00) 10*3/uL RBC 4.19 (4.10-5.20) 10*6/uL Hgb 9.6 L D (12.0-15.0) g/dL Hct 30.9 L (37.2-46.3) % MCV 73.7 L (80.0-97.0) fL MCH 22.9 L (27.0-32.0) pg MCHC 31.1 L (32.0-37.0) g/dL Plt Count 461 H (140-440) 10*3/uL MPV 9.9 (9.5-12.2) fL Immature Gran % (Auto) 0.7 % Neutrophils % 70.4 % Lymphocytes % 22.4 % Monocytes % 5.4 % Eosinophils % 0.7 % Basophils % 0.4 % Immature Gran # 0.10 H (0.00-0.04) 10*3/uL Neutrophils # 9.85 H (1.80-7.70) 10*3/uL Lymphocytes # 3.14 (0.90-5.00) 10*3/uL Monocytes # 0.75 (0.20-1.00) 10*3/uL Eosinophils # 0.10 (0.04-0.35) 10*3/uL Basophils # 0.05 (0.00-0.10) 10*3/uL D-Dimer (<0.60) mg/L FEU Sodium 139 (137-145) mmol/L Potassium 3.9 (3.5-5.1) mmol/L Chloride 104 (98-107) mmol/L Carbon Dioxide 24 (22-30) mmol/L Anion Gap 11 mmol/L BUN 17 (7-17) mg/dL Creatinine 0.85 (0.52-1.04) mg/dL Est GFR (CKD-EPI)AfAm >90 (>60 ml/min/1.73 sqM) Est GFR (CKD-EPI)NonAf >90 (>60 ml/min/1.73 sqM) Glucose 87 (74-99) mg/dL Plasma Lactic Acid Carlos 0.9 (0.7-2.0) mmol/L Calcium 9.7 (8.4-10.2) mg/dL Phosphorus 3.5 (2.5-4.5) mg/dL Magnesium 1.9 (1.6-2.3) mg/dL Total Bilirubin 0.2 (0.2-1.3) mg/dL AST 47 H (14-36) U/L ALT 51 H (4-34) U/L Alkaline Phosphatase 114 (38-126) U/L Total Protein 7.0 (6.3-8.2) g/dL Albumin 4.2 (3.5-5.0) g/dL Lipase 68 (23-300) U/L TSH 0.730 (0.465-4.680) mIU/L HCG, Quant <2.4 mIU/mL Urine Color Urine Appearance (Clear) Urine pH (5.0-8.0) Ur Specific [place] (1.001-1.035) Urine Protein (Negative) Urine Glucose (UA) (Negative) Urine Ketones (Negative) Urine Blood (Negative) Urine Nitrite (Negative) Urine Bilirubin (Negative) Urine Urobilinogen (<2.0) mg/dL Ur Leukocyte Esterase (Negative) Urine RBC (0-5) /hpf Urine WBC (0-5) /hpf Ur Squamous Epith Cells (0-4) /hpf Calcium Oxalate Crystal (None) /hpf Urine Bacteria (None) /hpf Urine Mucus (None) /hpf 12/24/24 12/24/24 Range/Units 23:09 23:09 WBC (4.50-10.00) 10*3/uL RBC (4.10-5.20) 10*6/uL Hgb (12.0-15.0) g/dL Hct (37.2-46.3) % MCV (80.0-97.0) fL MCH (27.0-32.0) pg MCHC (32.0-37.0) g/dL Plt Count (140-440) 10*3/uL MPV (9.5-12.2) fL Immature Gran % (Auto) % Neutrophils % % Lymphocytes % % Monocytes % % Eosinophils % % Basophils % % Immature Gran # (0.00-0.04) 10*3/uL Neutrophils # (1.80-7.70) 10*3/uL Lymphocytes # (0.90-5.00) 10*3/uL Monocytes # (0.20-1.00) 10*3/uL Eosinophils # (0.04-0.35) 10*3/uL Basophils # (0.00-0.10) 10*3/uL D-Dimer 0.25 (<0.60) mg/L FEU Sodium (137-145) mmol/L Potassium (3.5-5.1) mmol/L Chloride (98-107) mmol/L Carbon Dioxide (22-30) mmol/L Anion Gap mmol/L BUN (7-17) mg/dL Creatinine (0.52-1.04) mg/dL Est GFR (CKD-EPI)AfAm (>60 ml/min/1.73 sqM) Est GFR (CKD-EPI)NonAf (>60 ml/min/1.73 sqM) Glucose (74-99) mg/dL Plasma Lactic Acid Carlos (0.7-2.0) mmol/L Calcium (8.4-10.2) mg/dL Phosphorus (2.5-4.5) mg/dL Magnesium (1.6-2.3) mg/dL Total Bilirubin (0.2-1.3) mg/dL AST (14-36) U/L ALT (4-34) U/L Alkaline Phosphatase (38-126) U/L Total Protein (6.3-8.2) g/dL Albumin (3.5-5.0) g/dL Lipase (23-300) U/L TSH (0.465-4.680) mIU/L HCG, Quant mIU/mL Urine Color Yellow Urine Appearance Turbid H (Clear) Urine pH 6.5 (5.0-8.0) Ur Specific [place] 1.026 (1.001-1.035) Urine Protein Trace H (Negative) Urine Glucose (UA) Negative (Negative) Urine Ketones Negative (Negative) Urine Blood Negative (Negative) Urine Nitrite Positive H (Negative) Urine Bilirubin Negative (Negative) Urine Urobilinogen <2.0 (<2.0) mg/dL Ur Leukocyte Esterase Large H (Negative) Urine RBC 1 (0-5) /hpf Urine WBC >182 H (0-5) /hpf Ur Squamous Epith Cells 49 H (0-4) /hpf Calcium Oxalate Crystal Few H (None) /hpf Urine Bacteria Many H (None) /hpf Urine Mucus Few H (None) /hpf - EKG Data EKG Comments: EKG taken at 0: 40 showing a sinus rhythm. No ST segment elevations or depressions. No T wave versions. Ventricular rate 75, NC interval 152, QRS duration 88, QT/QTc 376/405 (Sara John) Disposition <Billy Pacheco - Last Filed: 12/24/24 17:48> Is patient prescribed a controlled substance at d/c from ED?: No Time of Disposition: 02:59 <Sara John - Last Filed: 12/26/24 20:57> Clinical Impression: UTI (urinary tract infection), Anemia Disposition: HOME SELF-CARE Condition: Stable Instructions (If sedation given, give patient instructions): Urinary Tract Infection in Women (ED) Additional Instructions: Taking a biotics as prescribed. Follow closely with PCP. Return to the ER for any new or worsening concerns. Prescriptions: Nitrofurantoin Monohyd/M-Cryst [Macrobid] 100 mg PO Q12HR #14 cap Referrals: None,Stated [Primary Care Provider] - 1-2 days Andreas Gr MD [STAFF PHYSICIAN] - 1-2 days Forms: Area PCPs
--- NOTE | 2024-12-24 19:15 | XR ---
EXAMINATION TYPE: XR chest 2V DATE OF EXAM: 12/24/2024 7:12 PM COMPARISON: Chest radiograph 11/03/2021. CLINICAL INDICATION: Female, 34 years old with history of SOB; [facility] TECHNIQUE: XR chest 2V Frontal and lateral views of the chest. FINDINGS: Lungs/Pleura: There is no evidence of pleural effusion, focal consolidation, or pneumothorax. Pulmonary vascularity: Unremarkable. Heart/mediastinum: Cardiomediastinal silhouette is unremarkable. Musculoskeletal: No acute osseous pathology. Other findings: None IMPRESSION: No acute cardiopulmonary disease/process. [facility], , 12/24/2024 7:13 PM
[2024-12-24] MEDS: SODIUM CHLORIDE 0.9% 1,000 ML IV ONE (23:19)
[2024-12-24 23:21] LABS: Basophils # (A) 0.05 10*3/uL (0.00-0.10); Basophils % (A) 0.4 %; Eosinophils # (A) 0.10 10*3/uL (0.04-0.35); Eosinophils % (A) 0.7 %; HCT 30.9 % (37.2-46.3); Lymphocytes # (A) 3.14 10*3/uL (0.90-5.00); Lymphocytes % (A) 22.4 %; MCH 22.9 pg (27.0-32.0); MCHC 31.1 g/dL (32.0-37.0); MCV 73.7 fL (80.0-97.0); Monocytes # (A) 0.75 10*3/uL (0.20-1.00); Monocytes % (A) 5.4 %; Neutrophils # (A) 9.85 10*3/uL (1.80-7.70); Neutrophils % (A) 70.4 %; Platelet Count 461 10*3/uL (140-440); RBC 4.19 10*6/uL (4.10-5.20); RDW 17.7 % (11.5-14.5); WBC 13.99 10*3/uL (4.50-10.00)
[2024-12-24 23:25] LABS: HGB 9.6 g/dL (12.0-15.0)
[2024-12-24 23:32] LABS: ALT 51 U/L (4-34); AST 47 U/L (14-36); African American GFR (CKD) >90 (>60 ml/min/1.73 sqM); Albumin 4.2 g/dL (3.5-5.0); Alkaline Phosphatase 114 U/L (38-126); Anion Gap 11 mmol/L; Blood Urea Nitrogen 17 mg/dL (7-17); Calcium 9.7 mg/dL (8.4-10.2); Carbon Dioxide 24 mmol/L (22-30); Chloride 104 mmol/L (98-107); Glucose 87 mg/dL (74-99); Lipase 68 U/L (23-300); Magnesium 1.9 mg/dL (1.6-2.3); Non-African American GFR(CKD) >90 (>60 ml/min/1.73 sqM); Potassium 3.9 mmol/L (3.5-5.1); Sodium 139 mmol/L (137-145); Total Protein 7.0 g/dL (6.3-8.2)
[2024-12-24 23:48] LABS: HCG,Quantitative Serum <2.4 mIU/mL
[2024-12-25 02:13] LABS: Bacteria,Urine Many /hpf; Bilirubin,Urine Negative (Negative); Blood,Urine Negative (Negative); Calcium Oxalate Crystals,Urine Few /hpf; Color,Urine Yellow; Glucose,Urine (UA) Negative (Negative); Ketones,Urine Negative (Negative); Leukocyte Esterase,Urine Large (Negative); Mucus,Urine Few /hpf; Nitrite,Urine Positive (Negative); PH, Urine 6.5 (5.0-8.0); Protein,Urine Trace (Negative); RBC,Urine 1 /hpf (0-5); Specific Gravity,Urine 1.026 (1.001-1.035); Squamous Epithelial Cell,Urine 49 /hpf (0-4); Urobilinogen,Urine <2.0 mg/dL (<2.0); WBC,Urine >182 /hpf (0-5)
[2024-12-25 03:39] VITALS: BP 139/99; PULSE 89; RESP 18; TEMP 98.2
[2024-12-25] MEDS: cefTRIAXone IN SWFI 1,000 MG/10 ML SYRINGE IVP STA (03:40)
== END 2024-12-25 03:50 | disposition home or self-care (01) ==
LOC: EC 17:17
CPT/HCPCS: 36415; 71046; 80053; 81001; 83605; 83690; 83735; 84100; 84443; 84702; 85025; 85379; 87077; 87086; 87186; 93005; 96361; 96374; 99285